=== PATIENT | female | born 1955 | race Caucasian/White ===

== ENCOUNTER → 2019-01-30 13:22 | Outpatient (CLI) | payer BC, SELFPAY | PROVIDERS: PCP Nurse Practitioner Family; Visit Provider Nurse Practitioner Family | DX: I48.91 Unspecified atrial fibrillation (principal) | CPT/HCPCS: 93225; 93226 ==

== ENCOUNTER → 2019-02-12 06:39 | Outpatient (CLI) | payer BC, SELFPAY ==
--- NOTE | 2019-02-12 06:45 | CA_ITS ---
PROCEDURE: 2-D M-mode and color Doppler study INDICATIONS FOR THE TEST: Chest pain+ COPD Heart Murmur Tobacco Smoking Palpitations+ Fatigue+ Syncope Edema Hypertension Diabetes Mellitus Rheumatic Fever SOB MALIK Obesity Hyperlipidemia+ Family History HD Additional History Abn EKG, AFIB, GERD, hx DVT, Butler, hx of MV prolapse PATIENT INFORMATION HEIGHT: 64 WEIGHT: 142 GENDER: Female B/P: 161/72 2-D/M-MODE INTERPRETATION: 2-D MEASUREMENTS OBSERVED VALUES IN CMS Right Ventricular Dimension (RVDd) 2.8 Interventricular Septum (Thickness)(IVsd) 0.8 Left Ventricular Internal Dimensions(LVIDd) 4.1 Left Ventricular Posterior Wall (Thickness)(LVPWd) 0.7 Aortic Root 2.5 Aortic Cusp Separation 2.0 Left Atrial Dimensions (LAD) 4.1 2D 1. Left atrium is mildly enlarged, left ventricle is normal size, left ventricle wall thickness is upper limit of the normal, there is preserved left ventricular systolic function, visually estimated ejection fraction 55% with no regional wall motion abnormality. 2. The right atrium and right ventricle are mildly enlarged with normal contractility. 3. The aortic valve is minimally thickened and fibrosed. 4. The mitral and tricuspid valve leaflets are minimally thickened. 5. The pulmonic valve is poorly visualized. 6. No significant pericardial effusion noted. DOPPLER INTERROGATION: Doppler interrogation of the aortic, mitral and tricuspid valvular presence of mild mitral and tricuspid regurgitation, tricuspid regurgitation jet velocity is inadequate for calculation of the right ventricular systolic pressure, grade 1 diastolic dysfunction seen with tissue Doppler evidence of raised left atrial pressure. Inferior vena cava is not well visualized. CONCLUSION: 1. Mild biatrial enlargement, normal left ventricular size, visually estimated ejection fraction 55% with no regional wall motion abnormality, grade 1 diastolic dysfunction seen with tissue Doppler evidence of raised left atrial pressure. 2. Mildly enlarged right ventricle with normal contractility. 3. Mild mitral and tricuspid regurgitation 4. No significant pericardial effusion noted.
--- NOTE | 2019-02-12 06:50 | NM_ITS ---
CARDIOLITE SPECT [facility] AND [facility]: History: Palpitations, fatigue hyperlipidemia, family history. Procedure: Patient exercised on Coleman protocol 5 minutes and 29 seconds, resting heart rate was 57 bpm resting blood pressure 182/89, with exercise maximum heart rate achieved was 154 bpm which is greater than 85% of the maximum] heart rate and a blood pressure was 214/70. The test was started due to shortness of breath patient denied any complained of chest pain. Patient has adequate exercise capacity achieved 7mets of workload on treadmill, the blood pressure response to exercise was hypertensive. Electrocardiogram: Resting echocardiogram showed sinus bradycardia, with exercise 1.[address] segment depression noted from the baseline EKG. The EKG portion of the exercise Myoview is positive for ischemia. Cardiac stress and resting SPECT images: Cardiac stress and resting SPECT images were obtained using technetium 99 Myoview 32.3 mCi at stress and 10.5 mCi at rest. Gated SPECT further analysis of segmental wall motion and calculation of the ejection fraction also done. Cardiac stress and resting SPECT images show a mild fixed defect in the anterior wall with normal contractility in the gated SPECT is likely secondary to soft tissue attenuation, no reversible ischemia seen. Computer derived ejection fraction is over 65% with no regional wall motion abnormality, right ventricle is normal size and contractility. Conclusion: 1. The EKG portion of the exercise Myoview is positive for ischemia, patient has adequate exercise capacity achieved 7mets of workload on treadmill, the blood pressure response to exercise was hypertensive, there was no exercise-induced chest discomfort. 2. No scintigraphic evidence of reversible ischemia seen at this level of exercise, computer derived ejection fraction is over 65% with no regional wall motion abnormality, right ventricle is normal size and contractility.
--- NOTE | 2019-02-12 09:45 | HMH.ITSHM ---
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 [] levethroxin citalopram astravastatin asa
== END ==
PROVIDERS: PCP Nurse Practitioner Family; Visit Provider Internal Medicine
DX: R00.2 Palpitations (principal); R53.83 Other fatigue; E78.5 Hyperlipidemia, unspecified; I48.0 Paroxysmal atrial fibrillation; I82.409 Acute embolism and thrombosis of unspecified deep veins of unspecified lower extremity; K21.9 Gastro-esophageal reflux disease without esophagitis; R07.89 Other chest pain; R53.1 Weakness; R94.31 Abnormal electrocardiogram [ECG] [EKG]; Z82.49 Family history of ischemic heart disease and other diseases of the circulatory system
CPT/HCPCS: 78452; 93017; 93306; A9502

== ENCOUNTER → 2019-02-16 09:06 | Outpatient (CLI) | payer BC, SELFPAY ==
--- NOTE | 2019-02-16 09:11 | US_ITS ---
US abdomen limited History:Nausea, right upper quadrant pain no hydronephrosis Ordering Physician:Beverly Gerardo APRN Patient Age: 63 years . Comparison:None Findings: Pancreas:Unremarkable. No obvious mass or abnormal fluid collection. No ductal dilatation Liver:There are 2 hepatic cysts in the right hepatic lobe measuring 2 x 1.7 cm and 1.7 x 1.9 cm. There is a small loculation within the smaller cyst.. The smaller cyst does have a small loculation. Right Kidney:3 cm cystic areas noted in the right renal pelvis region and may be related to a parapelvic renal cyst. The calyces are not dilated..prominent renal pelvis is an additional consideration Gallbladder:No gallstones, gallbladder wall thickening, pericholecystic fluid, or biliary dilatation. Small amount of gallbladder sludge versus concentrated bile is present of questionable clinical significance Impression: 1. Minimal gallbladder sludge versus concentrated bile. No gallstones. 2. Hepatic cysts. 3. Right parapelvic renal cyst versus prominent renal pelvis
== END ==
PROVIDERS: PCP Nurse Practitioner Family; Visit Provider Nurse Practitioner Family
DX: R10.11 Right upper quadrant pain (principal)
CPT/HCPCS: 76705

== ENCOUNTER → 2019-06-30 10:08 | Outpatient (CLI) | payer BC, SELFPAY ==
--- NOTE | 2019-06-30 10:13 | XR_ITS ---
PROCEDURE: XR LUMBAR SPINE MIN 4V CLINICAL INDICATION: LT SIDED LOW BACK PAIN COMPARISON: LS5 LUMBAR SPINE 5 VIEWS from 10/03/2016 FINDINGS: There is minimal lumbar curvature convex left. Mild facet arthritic changes present at L5-S1. There is normal alignment with mild degenerative disc disease at L3-L4 and L4-5. No fracture or dislocation. No lytic or blastic change. Normal alignment. IMPRESSION: Mild degenerative changes Dictated by: Breezy Martinez MD 06/30/2019 17:50 Electronically signed by Breezy Martinez MD in [place] 06/30/2019 17:50
== END ==
PROVIDERS: PCP Nurse Practitioner Family; Visit Provider Nurse Practitioner Family
DX: M54.42 Lumbago with sciatica, left side (principal)
CPT/HCPCS: 72110

== ENCOUNTER 2019-07-23 08:30 | Outpatient (RCR) | payer BC, SELFPAY ==
--- NOTE | 2019-06-15 11:14 | HMH.PTOPEV ---
PT Outpatient Evaluation Rehab PT Outpatient Evaluation Start: 06/15/19 10:39 Freq: Status: Active Protocol: Document 06/15/19 10:40 RIKA (Rec: 06/15/19 11:13 RIKA [id number]) Electronically Signed By Rogelio Washburn, PT 06/15/19 10:40 Outpatient Therapy Subjective History Subjective History Pt reports insidious onset L LE/thigh area N&T beginning in May. Pt reports intermittent N&T in L thigh area as well as L sided LBP. Pt reports no current weakness or pain in LLE. Pt reports improved s/s intensity w/recent cortizone injection. Chief Complaint Pain,Paresthesia Symptom Type Ache,Dull,Numbness,Tingling Symptoms Relieved By Rest/Positioning,Prescription Meds Symptoms Aggravated By Standing,Walking Prior Functional Limitations None Current Functional Limitations Standing,Walking Symptom Description Constant but Variable Level of pain today (0-10) 5 Pain scale - at its best (0-10) 3 Pain scale - at its worst (0-10) 5 Lumbopelvic Eval Posture Thoracic Spine Posture Standing Position Neutral Lumbar Spine Posture Standing Position Neutral Assistive device Assistive Devices None / NA Gait Observation General Gait Pattern Observation No Deviations/Normal Palapation tenderness left paraspinal tenderness Yes: 2/4 buttock tenderness Yes: 3/4 Lumbar/Sacral Palpation Findings Tenderness Accessory Movement L-spine Vertebrae Accessory Movements Central P/A Stigler that Elicit Symptoms L4 left L5 left Range of Motion Lumbar Spine Active Flexion Range of 0-70 Motion (degrees) Lumbar Spine Active Extension Range of 0-25 Motion (degrees) Left Lumbar Spine Lateral Flexion Active 0-40 Range of Motion (degrees) Right Lumbar Spine Lateral Flexion 0-40 Active Range of Motion (degrees) Lumbar Spine ROM Limitations Pain Manual Muscle Test Bilateral Knee Extension Strength Grade 5 Normal Knee Flexion Strength Grade 5 Normal Hip Flexion Strength Grade 4 Good Extensor Hallucis Longus Strength Grade 5 Normal Ankle Dorsiflexion Strength Grade 5 Normal Gastronemius/Soleus Strength Grade 4 Good DTR Rt Patellar 1+ Lt Patellar 1+ Rt Gastroc/Soleus 1+ Lt Gastroc/Soleus 1+ Special Tests Hip Piriformis Test Negative Right,Positive Left Reverse Sciatic Nerve Tension Test Negative Right,Positive Left
== END 2019-07-23 08:35 | disposition home or self-care (01) ==
LOC: PT 08:30
PROVIDERS: Visit Provider Nurse Practitioner Family
DX: M54.42 Lumbago with sciatica, left side (principal); M76.32 Iliotibial band syndrome, left leg
CPT/HCPCS: 97010; 97014; 97110; 97163; 97164; G0283

== ENCOUNTER → 2019-08-28 12:37 | Outpatient (CLI) | payer BC, SELFPAY ==
--- NOTE | 2019-08-28 12:38 | US_ITS ---
PROCEDURE: US KIDNEY CLINICAL INDICATION: BILAT RENAL CYSTS COMPARISON: No exams were available for comparison FINDINGS: Right kidney is 10.1 x 4.3 x 5.9 centimeters. Left kidney is 10.3 x 4.1 x 4.9 centimeters. Renal cortical areas are normal bilaterally. Right kidney shows a 4.3 centimeter anechoic lesion which could be in the renal sinus. There is no hydronephrosis. There is another anechoic structure in the hilum which could be a pedunculated cyst measuring 2.7 centimeters or developmental prominent extra renal pelvis. Left kidney shows normal cortex. There is no cortical lesion. Bilaterally there are no shadowing echogenic foci or hydronephrosis. IMPRESSION: Right renal cysts. No acute process and no hydronephrosis. Dictated by: Payam Lewis 08/28/2019 15:12 Electronically signed by Payam Lewis in [place] 08/28/2019 15:12
== END ==
PROVIDERS: PCP Nurse Practitioner Family; Visit Provider Nurse Practitioner Family
DX: N28.1 Cyst of kidney, acquired (principal)
CPT/HCPCS: 76770

== ENCOUNTER → 2020-06-16 12:15 | Outpatient (CLI) | payer BC, SELFPAY ==
--- NOTE | 2020-06-16 12:26 | XR_ITS ---
PROCEDURE: XR LUMBAR SPINE MIN 4V CLINICAL INDICATION: LOW BACK PAIN Left-sided sciatica COMPARISON: CR XR LUMBAR SPINE MIN 4V from 06/30/2019 FINDINGS: There is minimal lumbar curvature convex left. No acute fracture or dislocation is evident. There is mild degenerative disc disease at L3-L4 and L4-5 with small anterior osteophytes superiorly. There are areas of calcification to the right of L4 and L5 possibly due to calcified phleboliths in the gonadal vein. Not significantly changed from 06/30/2019. Pelvic phleboliths are also present. Other findings:None. IMPRESSION: Mild degenerative changes. No change with no acute finding Dictated by: Breezy Martinez MD 06/16/2020 12:54 Breezy Martinez MD in [place] 06/16/2020 12:54
== END ==
PROVIDERS: PCP Nurse Practitioner Family; Visit Provider Nurse Practitioner Family
DX: M54.42 Lumbago with sciatica, left side (principal)
CPT/HCPCS: 72110

== ENCOUNTER → 2020-08-01 11:15 | Outpatient (CLI) | payer BC, SELFPAY ==
[2020-08-02 14:33] LABS: Covid-19 Nasal PCR Sendout Lex POSITIVE
== END ==
PROVIDERS: PCP Nurse Practitioner Family; Visit Provider Nurse Practitioner Family
DX: Z20.828 Contact with and (suspected) exposure to other viral communicable diseases (principal); U07.1 COVID-19
CPT/HCPCS: U0004

== ENCOUNTER → 2020-11-04 11:37 | Outpatient (CLI) | payer BC, SELFPAY ==
[2020-11-04 12:12] LABS: Basophils % 0.3 % (0.1-2.0); Eosinophils # 0.1 K/mm3 (0.0-0.4); Eosinophils % 0.8 % (0.1-12.0); Hematocrit 37.6 % (37.0-47.0); Hemoglobin 11.8 g/dL (12.2-16.2); Lymphocytes # 1.1 K/mm3 (0.7-4.5); Lymphocytes % 11.7 % (10-50); Mean Corpuscular HGB Conc 31.4 g/dL (31.8-35.4); Mean Corpuscular Hemoglobin 27.8 pg (27.0-31.2); Mean Corpuscular Volume 88.5 fl (81-99); Mean Platelet Volume 7.3 fl (7.4-10.4); Monocytes # 0.2 K/mm3 (0.1-1.0); Monocytes % 2.5 % (1.7-9.3); Neutrophils # 7.6 K/mm3 (1.8-7.8); Neutrophils % 84.6 % (37.0-80.0); Platelet Count 291 K/mm3 (142-424); Red Blood Count 4.24 M/mm3 (4.20-5.40); Red Cell Distribution Width 14.1 % (11.5-17.5)
[2020-11-04 12:37] LABS: Free T4 (Free Thyroxine) 1.21 ng/dl (0.78-2.19)
[2020-11-04 12:52] LABS: Thyroid Stimulating Hormone 0.77 uIU/mL (0.465-4.68)
== END ==
PROVIDERS: Visit Provider Nurse Practitioner Family
DX: E04.1 Nontoxic single thyroid nodule (principal); R59.0 Localized enlarged lymph nodes
CPT/HCPCS: 36415; 84439; 84443; 84481; 85025

== ENCOUNTER → 2020-11-11 13:38 | Outpatient (CLI) | payer BC, SELFPAY ==
--- NOTE | 2020-11-11 13:46 | US_ITS ---
PROCEDURE: US THYROID CLINICAL INDICATION: THYROID NODULE COMPARISON: No exams were available for comparison FINDINGS: The right lobe is 3.3 x 1.1 x 1.1 cm. There is heterogeneous echogenicity with no definite nodule. The left lobe is 3.8 x 1.2 x 0.8 cm. Hyperechoic areas present in the mid aspect of the left lobe. This is not well-defined and may only represent an area of altered echogenicity. A nodule is a consideration. This measures 11 x 4 mm. An additional questionable nodule noted in the lower pole at 6 mm slightly hypoechoic. IMPRESSION: Questionable nodules on the left. These are nonspecific and may only be due to areas of heterogeneous echogenicity. Consider 6-12 month follow-up. Dictated by: Breezy Martinez MD 11/11/2020 17:08 Breezy Martinez MD in [place] 11/11/2020 17:08
--- NOTE | 2020-11-11 13:47 | US_ITS ---
PROCEDURE: US SOFT TISSUE HEAD AND NECK CLINICAL INDICATION: CERVICAL LYMPHADENOPATHY COMPARISON: No exams were available for comparison FINDINGS: The submandibular glands and parotid glands have unremarkable sonographic appearance. No abnormal fluid collection demonstrated. Small lymph node present in the right neck at 8 mm nonspecific. IMPRESSION: Unremarkable neck ultrasound. CT with contrast may provide more thorough evaluation if clinically warranted Dictated by: Breezy Martinez MD 11/11/2020 17:05 Breezy Martinez MD in [place] 11/11/2020 17:05
== END ==
PROVIDERS: PCP Nurse Practitioner Family; Visit Provider Nurse Practitioner Family
DX: E04.1 Nontoxic single thyroid nodule (principal); R59.0 Localized enlarged lymph nodes
CPT/HCPCS: 76536

== ENCOUNTER → 2021-03-10 11:47 | Outpatient (CLI) | payer BC, SELFPAY ==
--- NOTE | 2021-03-10 11:57 | XR_ITS ---
PROCEDURE: XR FACIAL BONES MIN 3V CLINICAL INDICATION: FACIAL INJURY, INJURY DUE TO FALL COMPARISON: No exams were available for comparison FINDINGS: No fracture or sinus air-fluid level apparent. No radiopaque foreign body. No lytic or blastic change. No obvious soft tissue sinus mass. Other findings:None. IMPRESSION: No acute findings. Dictated by: Breezy Martinez MD 03/10/2021 12:46 Breezy Martinez MD in [place] 03/10/2021 12:46
--- NOTE | 2021-03-10 11:57 | XR_ITS ---
PROCEDURE: XR HUMERUS RT CLINICAL INDICATION: INJURY DUE TO FALL, INJURY OF RT UPPER ARM Injury with pain COMPARISON: No exams were available for comparison FINDINGS: No fracture or dislocation. No lytic or blastic change. There is normal mineralization. The joint spaces are well-preserved. No significant degenerative/arthritic changes. No erosive changes evident. Other findings:None. IMPRESSION: No acute findings. Dictated by: Breezy Martinez MD 03/10/2021 12:46 Breezy Martinez MD in [place] 03/10/2021 12:46
== END ==
PROVIDERS: PCP Nurse Practitioner Family; Visit Provider Nurse Practitioner Family
DX: S49.91XA Unspecified injury of right shoulder and upper arm, initial encounter (principal); M79.601 Pain in right arm; S09.93XA Unspecified injury of face, initial encounter; W19.XXXA Unspecified fall, initial encounter
CPT/HCPCS: 70150; 73060

== ENCOUNTER → 2021-05-09 16:36 | Outpatient (CLI) | payer BC, SELFPAY ==
[2021-05-09 16:39] LABS: Adenovirus F 40/41, stool Not Detected (NotDetected); Astrovirus Not Detected (NotDetected); Campylobacter Not Detected (NotDetected); Clostridium Difficile A/B, PCR Not Detected (NotDetected); Cryptosporidium Not Detected (NotDetected); Cyclospora Cayetanesis Not Detected (NotDetected); Entamoeba histolytica Not Detected (NotDetected); Enteroaggregative E coli Not Detected (NotDetected); Enterotoxigenic E coli Not Detected (NotDetected); Giardia lamblia Not Detected (NotDetected); Norovirus Not Detected (NotDetected); Plesimonas Shigalloides, PCR Not Detected (NotDetected); Rotavirus A Not Detected (NotDetected); Salmonella, PCR Not Detected (NotDetected); Sapovirus Not Detected (NotDetected); Shiga-like toxin E coli Not Detected (NotDetected); Shigella Enterovasive E coli Not Detected (NotDetected); Vibrio Cholerae Not Detected (NotDetected); Vibrio, PCR Not Detected (NotDetected); Yersinia Entercolitica, PCR Not Detected (NotDetected)
[2021-05-10 04:26] LABS: Enteropathogenic E coli Detected (NotDetected)
== END ==
PROVIDERS: Visit Provider Nurse Practitioner Family
DX: R10.9 Unspecified abdominal pain (principal); R19.7 Diarrhea, unspecified; A04.0 Enteropathogenic Escherichia coli infection
CPT/HCPCS: 87507

== ENCOUNTER 2021-08-16 17:06 | Emergency (ER) | payer BC, SELFPAY ==
[2021-08-16 17:10] VITALS: BP 188/97; PULSE 59; RESP 18; O2SAT 98; BMI 24.2
[2021-08-16 18:00] VITALS: BP 181/65; PULSE 55; RESP 16; TEMP 37.1; O2SAT 100; BMI 24.7
[2021-08-16 18:31] VITALS: BP 155/59; PULSE 57; RESP 16; O2SAT 100
[2021-08-16 19:36] VITALS: BP 142/63; PULSE 55; RESP 16; TEMP 37.1
--- NOTE | 2021-08-16 19:36 | HMH.EDWNDL ---
ED Disposition Clinical Impression: Laceration of finger, Laceration Disposition: Home, Self-Care Condition on Discharge: Good Instructions: DI for Laceration Repair Additional Instructions: Please follow-up with your primary care physician in 7 days for wound check and suture removal. Please take Tylenol and ibuprofen for pain control. Please return back to the emergency department for any concerning symptoms such as bleeding, surrounding redness, purulent white drainage or any other concerning signs for infection. Please keep wound clean and dry. Referrals: Beverly Gerardo APRN [Primary Care Provider] - Time of Disposition: 19:40 - Critical Care Critical Care Time: No Attestation: On 08/16/21, the high probability of a clinically significant, sudden or life threatening deterioration of the following system(s) required my full and direct attention, intervention and personal management. The time I documented below is in addition to time spent performing reported procedures but includes the following listed in this critical care notation. Medical Decision Making - Medical Records Medical records reviewed: Yes: I reviewed the patient's medical records. - [place] Inquiry Pt receiving controlled substance: No Vital Signs: 08/16/21 17:10 08/16/21 18:00 08/16/21 18:31 Temperature 98.8 F Temperature Source Oral Pulse Rate 57 L Pulse Rate [Right Brachial] 59 L 55 L Respiratory Rate 18 16 16 Blood Pressure 155/59 H Blood Pressure [Right Arm] 188/97 H 181/65 H Blood Pressure Mean 91 Blood Pressure Mean [Right Arm] 127 103 Blood Pressure Source [Right Arm] Automatic Cuff Automatic Cuff Blood Pressure Position [Right Arm] Sitting Sitting 02 Sat by Pulse Oximetry 98 100 100 Oxygen Delivery Method Room Air Room Air 08/16/21 19:36 Temperature 98.7 F Temperature Source Pulse Rate 55 L Pulse Rate [Right Brachial] Respiratory Rate 16 Blood Pressure 142/63 H Blood Pressure [Right Arm] Blood Pressure Mean Blood Pressure Mean [Right Arm] Blood Pressure Source [Right Arm] Blood Pressure Position [Right Arm] 02 Sat by Pulse Oximetry Oxygen Delivery Method Room Air - Lab Data Lab results reviewed: Yes: I reviewed the patient's lab results. Medical Decision Narrative: Mrs. Chi is a 65-year-old female with no significant past medical history, no blood thinners who presents to the emergency department for an isolated laceration to the left index finger. Hemostasis is achieved on arrival. Patient is neurovascularly intact and hemodynamically stable. Patient has a 1 inch superficial laceration to the distal end of her index finger with no concern for tendon involvement or foreign body. Patient is up-to-date on tetanus. Wound is repaired with 4 nylon sutures and patient is informed to follow-up with primary care physician in 7 days for suture removal. Patient is provided instructions on wound care. Patient instructed to return to the ED for any concerning signs of infection such as erythema, purulent white drainage, worsening pain or any other concerning symptoms. Wound/Laceration HPI - General Chief Complaint: Wound/Laceration Stated Complaint: AO 08/16@1000 LAC TO L INDEX FINGER Time Seen by Provider: 08/16/21 17:20 Mode of Arrival: Ambulatory Source of Information: Patient Limitations: No Limitations Description of Symptoms (Recalled from ER Triage Doc. by RN): laceration to R index finger, happened at approx 10 am this morning. Pt reports she cut finger with an exacto knife. laceration does involve the finger nail - History of Present Illness Onset (ago): hour(s) Location: other (hand) Extremity Location: Left: hand (1 inch laceration at the distal tip of index finger ) Place: home Patient tetanus UTD: Yes Context: accidental Associated symptoms: pain Treatments prior to arrival: bandage - Related Data Home Medications Medication Instructions Recorded Confirmed aspirin 81
== END 2021-08-16 19:39 | disposition home or self-care (01) ==
PROVIDERS: Emergency Provider Student in an Organized Health Care Education/Training Program; PCP Nurse Practitioner Family
DX: S61.311A Laceration without foreign body of left index finger with damage to nail, initial encounter (principal); W26.0XXA Contact with knife, initial encounter; Y92.010 Kitchen of single-family (private) house as the place of occurrence of the external cause; I10 Essential (primary) hypertension; K21.9 Gastro-esophageal reflux disease without esophagitis; R01.1 Cardiac murmur, unspecified; E78.5 Hyperlipidemia, unspecified; E03.9 Hypothyroidism, unspecified
CPT/HCPCS: 12001; 99282

== ENCOUNTER 2021-08-31 10:14 | Emergency (ER) | payer BC, SELFPAY ==
[2021-08-31 11:41] VITALS: BP 148/61; PULSE 63; RESP 18; TEMP 36.9; O2SAT 98; BMI 24.7
--- NOTE | 2021-08-31 11:56 | HMH.EDUTC ---
[place] Disposition Clinical Impression: UTI (urinary tract infection) Qualifiers: Urinary tract infection type: site unspecified Hematuria presence: with hematuria Qualified Code(s): N39.0 - Urinary tract infection, site not specified; R31.9 - Hematuria, unspecified Disposition: Home, Self-Care Condition on Discharge: Good Instructions: DI for Urinary Tract Infection (UTI), Cefdinir, Phenazopyridine Additional Instructions: *Increase fluids. Water not Soda or Tea *Start antibiotic immediately and be sure to take as ordered for the FULL length of time although you should start to see improvement over the next 48 hours *Pyridium as needed Remember this medication will turn your urine [place]. This is normal but it will stain what ever it gets on *You should not use Pyridium for more than 48 hours. If so , follow up with your primary physician to review urine culture and ensure that antibiotic is adequate for infection *Be SURE to follow up anytime for new or worsening symptoms with your family doctor. AND in 48 hours for urine culture results with your family doctor, if you do not have a doctor then you may call back to the [facility] for urine culture results and further treatment. We do recommend that you choose and establish care with a Primary Care Physician. AND follow up with them in 10-14 days to repeat UA to ensure infection is resolved and blood no longer present *Be sure to let your PCP know that we sent urine cultures from the [facility] so they can follow up to ensure that you area the on the correct antibiotic Call your doctor office and make appointment for 48 hours (2 days from today) to follow up and get the results of your urine culture and further treatment Prescriptions: Cefdinir [Omnicef 300mg Capsule] 300 mg PO BID #20 cap Transmission Status: Pending to [id number] Phenazopyridine HCl [Pyridium 200mg Tablet] 200 pow PO TID #6 tab Transmission Status: Pending to [id number] Referrals: Beverly Gerardo APRN [Primary Care Provider] - As needed Time of Disposition: 12:06 Medical Decision Making - [place] Inquiry Pt receiving controlled substance: No [place] was queried for this patient: No Vital Signs: 08/31/21 11:41 Temperature 98.4 F Temperature Source Oral Pulse Rate [Left] 63 Respiratory Rate 18 Blood Pressure [Right Arm] 148/61 H Blood Pressure Mean [Right Arm] 90 02 Sat by Pulse Oximetry 98 - Lab Data Lab results reviewed: Yes: I reviewed the patient's lab results. Orders (Tests/Meds): ORDERS Category Date Time Status Urine Culture Stat Micro 08/31/21 11:43 Ordered [place] HPI - General Stated complaint: possible UTI Time Seen by Provider: 08/31/21 11:57 Mode of Arrival: Ambulatory Source of Information: Patient Limitations: No Limitations Description of Symptoms (Recalled from Triage Doc. by RN): pt c/o burning with urination since last night. HEENT Symptoms (Recalled from RN notes): No Resp Symptoms (Recalled from RN notes): No Skin Symptoms (Recalled from RN notes): No MS Symptoms (Recalled from RN notes): No Functional Status (Recalled from RN notes): wnl - History of Present Illness Provider Complaint: Patient states that she has having burning with urination and feeling of urgency and frequency since last night States that she feels like she may have a UTI and wanted to get her urine checked - Related Data Home Medications Medication Instructions Recorded Confirmed aspirin 81 mg tablet,delayed 81 mg PO DAILY 02/02/19 06/05/21 release atorvastatin 40 mg tablet 40 mg PO DAILY 02/02/19 06/05/21 citalopram 20 mg tablet 20 mg PO DAILY 02/02/19 06/05/21 fluticasone propionate 50 1 spray INTRANASAL DAILY 02/02/19 06/05/21 mcg/actuation nasal spray,suspension levothyroxine 75 mcg capsule 75 mcg PO DAILY 02/02/19 06/05/21 omeprazole 20 mg capsule,delayed 20 mg PO DAILY 02/02/19 06/05/21 release metoprolol tartrate 25 mg tablet 25 mg PO DAILY tab
[2021-08-31 11:58] LABS: Apearance,Urine Turbid (Clear); Color,Urine Dark Yellow (Yellow); PH,Urine 6.5 (5.0-8.5); Protein,Urine 1+ (Negative)
[2021-08-31 11:59] LABS: Bilirubin,Urine Negative (Negative); Blood, Urine 1+ (Negative); Glucose,Urine (UA) Negative (Negative); Ketones,Urine Negative (Negative); UTC Leukocyte Esterase,Urine 3+ (Negative); UTC Nitrate,Urine Positive (Negative); Urobilinogen,Urine 0.2 EU/dl (0.2)
[2021-08-31 12:26] VITALS: BP 148/61; PULSE 63; RESP 18; TEMP 36.9
== END 2021-08-31 12:27 | disposition home or self-care (01) ==
PROVIDERS: Emergency Provider Nurse Practitioner; PCP Nurse Practitioner Family
DX: N30.01 Acute cystitis with hematuria (principal); I10 Essential (primary) hypertension; E78.5 Hyperlipidemia, unspecified; E03.9 Hypothyroidism, unspecified; K21.9 Gastro-esophageal reflux disease without esophagitis; F33.1 Major depressive disorder, recurrent, moderate; Z79.899 Other long term (current) drug therapy
CPT/HCPCS: 81003; 87086; 87088; 87186; 99202; G0463

== ENCOUNTER 2022-01-08 20:58 | Emergency (ER) | payer MEDICARE, SELFPAY ==
[2022-01-08 20:59] VITALS: BP 160/65; PULSE 67; RESP 18; TEMP 36.7; O2SAT 97; BMI 23.9
--- NOTE | 2022-01-08 21:24 | XR_ITS ---
PROCEDURE INFORMATION: Exam: XR Right Foot Exam date and time: 01/08/2022 9:38 PM Age: 66 years old Clinical indication: Pain; Ankle and foot; Right; Additional info: Right lateral foot/ankle pain, no injury TECHNIQUE: Imaging protocol: XR Right foot. Views: 3 or more views. COMPARISON: No relevant prior studies available. FINDINGS: Bones/joints: Normal. Soft tissues: Normal. IMPRESSION: No acute findings.
--- NOTE | 2022-01-08 21:24 | XR_ITS ---
PROCEDURE INFORMATION: Exam: XR Right Ankle Exam date and time: 01/08/2022 9:39 PM Age: 66 years old Clinical indication: Pain; Ankle and foot; Right; Additional info: Right lateral foot/ankle pain, no injury TECHNIQUE: Imaging protocol: XR Right ankle. Views: 3 or more views. COMPARISON: CR XR FOOT RT MIN 3V 01/08/2022 9:38 PM FINDINGS: Bones/joints: Normal. Soft tissues: Normal. IMPRESSION: No acute findings.
[2022-01-08 21:45] LABS: Basophils # 0.2 K/mm3 (0-0.2); Basophils % 1.5 % (0.1-2.0); Eosinophils # 0.2 K/mm3 (0.0-0.4); Eosinophils % 1.6 % (0.1-12.0); Hematocrit 34.1 % (37.0-47.0); Hemoglobin 11.4 g/dL (12.2-16.2); Lymphocytes # 2.3 K/mm3 (0.7-4.5); Lymphocytes % 21.7 % (10-50); Mean Corpuscular HGB Conc 33.4 g/dL (31.8-35.4); Mean Corpuscular Hemoglobin 28.2 pg (27.0-31.2); Mean Corpuscular Volume 84.6 fl (81-99); Mean Platelet Volume 7.5 fl (7.4-10.4); Monocytes # 0.6 K/mm3 (0.1-1.0); Monocytes % 5.1 % (1.7-9.3); Neutrophils # 7.6 K/mm3 (1.8-7.8); Neutrophils % 70.1 % (37.0-80.0); Platelet Count 324 K/mm3 (142-424); Red Blood Count 4.03 M/mm3 (4.20-5.40); Red Cell Distribution Width 14.6 % (11.5-17.5); White Blood Count 10.8 K/mm3 (4.8-10.8)
[2022-01-08 21:58] LABS: Alanine Aminotransferase 35 U/L (12-78); Albumin Level 4.5 g/dl (3.5-5.0); Albumin/Globulin Ratio 1.5 (1.1-1.8); Alkaline Phosphatase 62 U/L (38-126); Anion Gap 13.6 mEq/L (5-15); Aspartate Amino Transferase 43 U/L (14-36); Bilirubin,Total 0.7 mg/dl (0.2-1.3); Blood Urea Nitrogen 17 mg/dl (7-17); Calcium 9.3 mg/dl (8.4-10.2); Carbon Dioxide 28 mmol/L (22.0-30.0); Chloride 103 mmol/L (98-107); Creatinine Clearance Estimated 54 mL/min (50-200); Estimated Glomerular Filt Rate 72 ml/min (>60); GFR (African American) 87 ML/MIN (>60); Globulin 3.1 g/dL (1.3-3.2); Glucose 100 mg/dl (74-100); Potassium 4.6 mmoL/L (3.5-5.1); Sodium 140 mmol/L (136-145); Total Protein,Serum 7.6 g/dl (6.3-8.2)
[2022-01-08 22:03] LABS: C-Reactive Protein 1.3 mg/L (0-4)
[2022-01-08 22:19] LABS: Erythrocyte Sedimentation Rate 50 mm/hr (0-30)
[2022-01-08 22:22] LABS: Procalcitonin < 0.030 ng/mL (0.0-2.0)
--- NOTE | 2022-01-08 22:37 | HMH.EDGENADL ---
ED Disposition Clinical Impression: Ankle pain Qualifiers: Chronicity: acute Laterality: right Qualified Code(s): M25.571 - Pain in right ankle and joints of right foot Disposition: Home, Self-Care Condition on Discharge: Good Instructions: DI for Acute Pain -- Adult Additional Instructions: use meds and call pcp for follow up Prescriptions: predniSONE [Prednisone 20mg Tab] 20 mg PO BID #10 tab Transmission Status: Pending to [facility] Referrals: Beverly Gerardo APRN [Primary Care Provider] - - Critical Care Critical Care Time: No Attestation: On 01/08/22, the high probability of a clinically significant, sudden or life threatening deterioration of the following system(s) required my full and direct attention, intervention and personal management. The time I documented below is in addition to time spent performing reported procedures but includes the following listed in this critical care notation. Medical Decision Making - Medical Records Medical records reviewed: Yes: I reviewed the patient's medical records. - Kirby Inquiry Pt receiving controlled substance: No Vital Signs: 01/08/22 20:59 Temperature 98.1 F Temperature Source Oral Pulse Rate [Left Radial] 67 Respiratory Rate 18 Blood Pressure [Right Arm] 160/65 H Blood Pressure Mean [Right Arm] 96 Blood Pressure Source [Right Arm] Automatic Cuff Blood Pressure Position [Right Arm] Sitting 02 Sat by Pulse Oximetry 97 Oxygen Delivery Method Room Air - Lab Data Lab results reviewed: Yes: I reviewed the patient's lab results. Lab Results 01/08/22 21:30: WBC 10.8, RBC 4.03 L, Hgb 11.4 L, Hct 34.1 L, MCV 84.6, MCH 28.2, MCHC 33.4, RDW 14.6, Plt Count 324, MPV 7.5, Neut % (Auto) 70.1, Lymph % (Auto) 21.7, Monona % (Auto) 5.1, Eos % (Auto) 1.6, Baso % (Auto) 1.5, Neut # (Auto) 7.6, Lymph # (Auto) 2.3, Monona # (Auto) 0.6, Eos # (Auto) 0.2, Baso # (Auto) 0.2, ESR 50 H 01/08/22 21:30: Sodium 140, Potassium 4.6, Chloride 103, Carbon Dioxide 28, Anion Gap 13.6, BUN 17, Creatinine 0.80, Estimated Creat Clear 54, Estimated GFR 72, Est GFR ( Amer) 87, Glucose 100, Uric Acid 4.0, Calcium 9.3, Total Bilirubin 0.7, AST 43 H, ALT 35, Alkaline Phosphatase 62, C-Reactive Protein 1.3, Total Protein 7.6, Albumin 4.5, Globulin 3.1, Albumin/Globulin Ratio 1.5, Procalcitonin < 0.030 Result diagrams: 01/08/22 21:30 01/08/22 21:30 Orders (Tests/Meds): ED MEDICATIONS Discontinued Medications Generic Name Dose Route Start Last Admin Trade Name Freq PRN Reason Stop Dose Admin Acetaminophen/Codeine Phosphate 1 kathy 01/08/22 22:46 Acetaminophen 300mg W/Codeine 30mg Take Home Pack (6) PO 01/08/22 22:47 ONCE ONE Ketorolac Tromethamine 30 mg 01/08/22 21:25 01/08/22 21:26 Ketorolac 30mg/Ml Vial IM 01/08/22 21:26 30 mg ONCE ONE Administration Methylprednisolone Sodium Succinate 125 mg 01/08/22 22:45 Methylprednisolone Sod Succ 125mg Vial IV 01/08/22 22:46 ONCE ONE Morphine Sulfate 2 mg 01/08/22 22:46 Morphine 2mg/Ml Syringe IV 01/08/22 22:47 ONCE ONE - Radiology Data #1 Image(s): Ankle, Foot/Toes Image Reviewed: Yes I discussed the image results w/the radiologist Preliminary Findings: No Fracture Seen Medical Decision Narrative: rt ankle pain with stable labs and xray and exam most consistent with acute arthritis General Adult HPI - General Chief complaint: PAIN Stated complaint: Pain R ankle Time Seen by Provider: 01/08/22 21:05 Mode of Arrival: Wheelchair Source of Information: Patient, Relative, Medical Record Limitations: No Limitations Description of Symptoms (Recalled from ER Triage Doc. by RN): PT REPORTS THAT SHE IS HAVING HORRIBLE 10/10 PAIN TO RIGHT ANKLE - DENIES INJURY. - History of Present Illness HPI narrative: atraumatic rt ankle pain with no rash - no gout known Onset (ago): hour(s) Location: lower extremity Severity: moderate Quality: sharp Consistency:
[2022-01-08 22:58] VITALS: BP 143/71; PULSE 71; RESP 18; TEMP 36.7; O2SAT 98
== END 2022-01-08 23:08 | disposition home or self-care (01) ==
PROVIDERS: Emergency Provider Emergency Medicine; PCP Nurse Practitioner Family
DX: M25.571 Pain in right ankle and joints of right foot (principal); K21.9 Gastro-esophageal reflux disease without esophagitis; I10 Essential (primary) hypertension; E03.9 Hypothyroidism, unspecified; R00.2 Palpitations; R01.1 Cardiac murmur, unspecified; Z79.899 Other long term (current) drug therapy
CPT/HCPCS: 73610; 73630; 80053; 84145; 84550; 85025; 85651; 86140; 96372; 96374; 96375; 99284

== ENCOUNTER 2022-04-15 08:15 | Emergency (ER) | payer MEDICARE, SELFPAY ==
[2022-04-15 08:42] VITALS: BP 130/91; PULSE 79; RESP 16; TEMP 37.3; O2SAT 97; BMI 24.7
[2022-04-15 08:46] LABS: UTC Influenza A Antigen Negative (Negative); UTC Influenza B Antigen Negative (Negative)
[2022-04-15 08:47] LABS: UTC Strep Screen (Rapid) Negative (Negative)
--- NOTE | 2022-04-15 08:50 | HMH.EDUTC ---
[facility] – [place] Disposition Clinical Impression: URI (upper respiratory infection) Qualifiers: URI type: unspecified URI Qualified Code(s): J06.9 - Acute upper respiratory infection, unspecified Disposition: Home, Self-Care Condition on Discharge: Good Instructions: Sore Throat, DI for Sinusitis, DI for COVID-19 (Suspected or Confirmed ) Additional Instructions: ? Start antibiotic today. Be sure to complete entire prescription even if feeling better ? Monitor temp. Tylenol every 4 hours as needed and / or ibuprofen every 6 hours as needed ( As long as your primary care physician has told you that it ok to take both. For fever/aches/pains ER if no less than 101 despite Tylenol or Motrin ? Humidifier/vaporizer or hot steamy shower *Tessalon Perles will not cause drowsiness but use at bedtime to help stop cough so that you may get some rest. *Start steroid today. Helps with inflammation therefore, cough and wheezing. Follow directions on the package. Reviewed side effects. Patient reports taking them before. Follow up IMMEDIATELY for new or worsening of symptoms OR no noticeable improvement over the next 48-72 hours. 911 immediately for any life threatening symptoms such as chest pain or difficulty breathing You were tested for today for COVID19 your test result should be back in the next 24-48 hours, you may check your results on the [facility] My Health Portal Make sure to take your Vitamins Vit. C Vit D and Zinc if you can take them Prescriptions: Cefdinir [Omnicef 300mg Capsule] 300 mg PO BID 7 Days #14 cap Transmission Status: Pending to [facility] predniSONE [Prednisone 20mg Tab] 20 mg PO BID 5 Days #10 tab Transmission Status: Pending to [facility] Referrals: Beverly Gerardo APRN [Primary Care Provider] - As needed Time of Disposition: 09:11 Medical Decision Making - Kirby Inquiry Pt receiving controlled substance: No Kirby was queried for this patient: No Vital Signs: 04/15/22 08:42 Temperature 99.2 F Temperature Source Oral Pulse Rate [Left] 79 Respiratory Rate 16 Blood Pressure [Right Arm] 130/91 H Blood Pressure Mean [Right Arm] 104 02 Sat by Pulse Oximetry 97 - Lab Data Lab results reviewed: Yes: I reviewed the patient's lab results. Lab Results 04/15/22 08:36: Strep Scn Rapid [facility] Negative 04/15/22 08:37: Influenza Type A Ag Negative, Influenza Type B Ag Negative Orders (Tests/Meds): ORDERS Category Date Time Status Covid-19 Nasal PCR ([facility]) Routine Lab 04/15/22 08:36 Ordered Strep Screen Confirmation Stat Micro 04/15/22 08:36 Received Medical Decision Narrative: Patient states that she has taken both Cefdinir and Prednisone in the past without complications or reactions [facility] [place] HPI - General Stated complaint: low grade fever,SOA Time Seen by Provider: 04/15/22 08:50 Mode of Arrival: Ambulatory Source of Information: Patient Limitations: No Limitations Description of Symptoms (Recalled from Triage Doc. by RN): patient comes in with complaints of fever, trouble taking deep breaths, and sore throat. states that he had the flu a few weeks ago. and patient was also exposed to covid by her inlaws approx. 2 weeks ago as well. patient states that her symptoms began last night HEENT Symptoms (Recalled from RN notes): Yes Resp Symptoms (Recalled from RN notes): Yes Skin Symptoms (Recalled from RN notes): No MS Symptoms (Recalled from RN notes): No Functional Status (Recalled from RN notes): n/a - History of Present Illness Provider Complaint: Patient states that she started feeling bad last night State that she has been having low grade fever, scratchy throat, sinus congestion and feeling like she cant breath through her nose and it made her feel a little SOA states that she has had dry cough and feeling achy all over with chills States that this morning when she was still not feeling well she came in States that her had flu a couple weeks ago and she was around
[2022-04-15 09:15] VITALS: BP 130/91; PULSE 79; RESP 16; TEMP 37.3
== END 2022-04-15 09:20 | disposition home or self-care (01) ==
PROVIDERS: Emergency Provider Nurse Practitioner; PCP Nurse Practitioner Family
DX: J06.9 Acute upper respiratory infection, unspecified (principal); U07.1 COVID-19
CPT/HCPCS: 87804; 87880; 99212; C9803; G0463; U0003; U0005

== ENCOUNTER 2022-07-01 10:55 | Emergency (ER) | payer MEDICARE, SELFPAY ==
[2022-07-01 10:55] VITALS: BP 173/74; PULSE 56; RESP 16; TEMP 36.8; O2SAT 97; BMI 25.4
--- NOTE | 2022-07-01 11:23 | CT_ITS ---
PROCEDURE INFORMATION: Exam: CT Abdomen And Pelvis With Contrast Exam date and time: 07/01/2022 11:55 AM Age: 66 years old Clinical indication: Abdominal pain; Generalized; Additional info: Abdo pain, diarrhea TECHNIQUE: Imaging protocol: Computed tomography of the abdomen and pelvis with contrast. Radiation optimization: All CT scans at this facility use at least one of these dose optimization techniques: automated exposure control; mA and/or kV adjustment per patient size (includes targeted exams where dose is matched to clinical indication); or iterative reconstruction. Contrast material: ISOVUE; Contrast volume: 75 ml; Contrast route: IV; COMPARISON: [facility] US abdomen limited 02/16/2019 9:01 AM FINDINGS: Inferior thorax: Mild interstitial prominence. Punctate radiopaque density in the distal esophagus. Liver: Fatty infiltration of the liver. Hepatic cysts, the largest measuring 2.2 cm. Gallbladder and bile ducts: Unremarkable gallbladder. Pancreas: 7 mm pancreatic tail cyst. Spleen: No splenomegaly. Adrenal glands: Unremarkable adrenals. Kidneys and ureters: Moderate right pelvicaliceal dilatation, without associated urolithiasis. Stomach and bowel: Wall thickening in the decompressed stomach. Prominent stool. Diverticula, without pericolonic inflammation. Appendix: Nonvisualization of the appendix. Intraperitoneal space: No significant free fluid. Vasculature: Normal caliber of the abdominal aorta. Vascular calcification. Lymph nodes: Subcentimeter lymph nodes. Urinary bladder: Normal bladder morphology. Reproductive: Status post hysterectomy. Bones/joints: Mild degenerative change and disc bulging. Soft tissues: Poorly defined 1.4 cm nodular lesion in the subcutaneous fat of the left gluteal region, believed to be iatrogenic in etiology. IMPRESSION: 1. Moderate right pelvicaliceal dilatation, without associated urolithiasis. 2. Wall thickening in the decompressed stomach. 3. Additional findings as described above.
--- NOTE | 2022-07-01 11:25 | HMH.EDGENADL ---
Discharge Plan Disposition Patient Disposition: Home, Self-Care Condition: Good Prescriptions Prescriptions: No Action amoxicillin 500 mg capsule 500 mg PO Q12H 10 Days Qty: 20 0RF levothyroxine 75 mcg capsule 75 mcg PO DAILY citalopram [Celexa] 20 mg tablet 20 mg PO DAILY atorvastatin 40 mg tablet 40 mg PO DAILY aspirin [Adult Low Dose Aspirin] 81 mg tablet,delayed release (DR/EC) 81 mg PO DAILY fluticasone propionate 50 mcg/actuation spray,suspension 1 spray INTRANASAL DAILY omeprazole 20 mg capsule,delayed release(DR/EC) 20 mg PO DAILY metoprolol tartrate 25 mg tablet 25 mg PO DAILY prednisone 20 MG tablet 20 mg PO BID 5 Days Qty: 10 0RF cefdinir 300 MG capsule 300 mg PO BID 7 Days Qty: 14 0RF phenazopyridine 200 MG tablet 200 pow PO TID Qty: 6 0RF cefdinir 300 MG capsule 300 mg PO BID Qty: 20 0RF prednisone 20 MG tablet 20 mg PO BID Qty: 10 0RF Referrals Follow up/Referrals: Beverly Gerardo APRN [Primary Care Provider] - See instructions Activity Restrictions/Add. Instructions Additional Instructions/Restrictions: Tylenol or ibuprofen for pain. Rest and drink plenty of fluids. Follow-up with primary care provider in the office, call tomorrow to make appointment. Clinical Impressions Clinical Impression: Abdominal pain, Diarrhea Discharge ED Provider: Mo Tracy Adult HPI General Chief complaint: Weakness Stated complaint: diarrhea Time Seen by Provider: 07/01/22 11:18 Mode of Arrival: Wheelchair Source of Information: Patient Limitations: No Limitations Description of Symptoms (Recalled from ER Triage Doc. by RN): Pt reports diarrhea for approx 2 weeks, reports generalized weakness, no appetite. Has not ate or drank anything yet today. Reports diarrhea x3 episodes yesterday, x1 today. Pt reports is scheduled for CT scan here at [facility] tomorrow r/t diarrhea not improving. currently on prescription for flagyl and ciprofloxacin from primary doctor. Pt is tender in lower abd to palpation. History of Present Illness HPI narrative: Patient has had diarrhea for about 2 weeks. Initially had blood in it. Has lower right abdominal pain. Not eating or drinking much. No fever. Saw her primary care provider about a week and a half ago and prescribed ciprofloxacin and Flagyl which is not helping, she had blood work done which was reported to be normal. She has a CT scan of the abdomen ordered for tomorrow. Today she was out of it so therefore brought to the emergency department. Prior abdominal surgeries include hysterectomy and appendectomy. Related Data Home Medications Medication Instructions Recorded Confirmed aspirin 81 mg tablet,delayed 81 mg PO DAILY 02/02/19 06/05/21 release (Adult Low Dose Aspirin) atorvastatin 40 mg tablet 40 mg PO DAILY Cholesterol 02/02/19 04/15/22 citalopram 20 mg tablet (Celexa) 20 mg PO DAILY Anxiety 02/02/19 04/15/22 fluticasone propionate 50 1 spray intranasal DAILY 02/02/19 06/05/21 mcg/actuation nasal spray,suspension levothyroxine 75 mcg capsule 75 mcg PO DAILY thyroid 02/02/19 04/15/22 omeprazole 20 mg capsule,delayed 20 mg PO DAILY GERD 02/02/19 04/15/22 release metoprolol tartrate 25 mg tablet 25 mg PO DAILY 03/01/20 06/05/21 Previous Rx's Medication Instructions Recorded amoxicillin 500 mg capsule 500 mg PO Q12H otitis media 10 06/05/21 days #20 caps cefdinir 300 mg capsule 300 mg PO BID #20 caps 08/31/21 phenazopyridine 200 mg tablet 200 pow PO TID #6 tabs 08/31/21 prednisone 20 mg tablet 20 mg PO BID #10 tabs 01/08/22 cefdinir 300 mg capsule 300 mg PO BID 7 days #14 caps 04/15/22 prednisone 20 mg tablet 20 mg PO BID 5 days #10 tabs 04/15/22 Allergies Allergy/AdvReac Type Severity Reaction Status Date / Time Sulfa (Sulfonamide Allergy Verified 04/15/22 08:47 Antibiotics) [facility] Medical History (Updated 07/01/22 @ 13:26 by Sugar
[2022-07-01 11:30] VITALS: BP 161/73; PULSE 56; RESP 18; O2SAT 98
[2022-07-01 11:35] LABS: Basophils # 0.1 K/mm3 (0-0.2); Basophils % 0.8 % (0.1-2.0); Eosinophils # 0.2 K/mm3 (0.0-0.4); Eosinophils % 2.7 % (0.1-12.0); Hematocrit 34.9 % (37.0-47.0); Hemoglobin 11.4 g/dL (12.2-16.2); Lymphocytes # 1.7 K/mm3 (0.7-4.5); Lymphocytes % 27.4 % (10-50); Mean Corpuscular HGB Conc 32.8 g/dL (31.8-35.4); Mean Corpuscular Hemoglobin 28.1 pg (27.0-31.2); Mean Corpuscular Volume 85.7 fl (81-99); Mean Platelet Volume 7.3 fl (7.4-10.4); Monocytes # 0.4 K/mm3 (0.1-1.0); Monocytes % 5.7 % (1.7-9.3); Neutrophils % 63.4 % (37.0-80.0); Platelet Count 297 K/mm3 (142-424); Red Blood Count 4.07 M/mm3 (4.20-5.40); Red Cell Distribution Width 14.5 % (11.5-17.5); White Blood Count 6.3 K/mm3 (4.8-10.8)
[2022-07-01 11:50] LABS: Chloride 103 mmol/L (98-107); Potassium 4.3 mmoL/L (3.5-5.1); Sodium 139 mmol/L (136-145)
[2022-07-01 11:52] LABS: Alanine Aminotransferase 23 U/L (12-78); Alkaline Phosphatase 74 U/L (38-126); Aspartate Amino Transferase 29 U/L (14-36); Bilirubin,Total 0.2 mg/dl (0.2-1.3); Blood Urea Nitrogen 13 mg/dl (7-17); Creatinine Clearance Estimated 58 mL/min (50-200); Estimated Glomerular Filt Rate 84 ml/min (>60); GFR (African American) 102 ML/MIN (>60)
[2022-07-01 11:53] LABS: Albumin Level 3.8 g/dl (3.5-5.0); Albumin/Globulin Ratio 1.4 (1.1-1.8); Anion Gap 11.3 mEq/L (5-15); Calcium 8.6 mg/dl (8.4-10.2); Carbon Dioxide 29 mmol/L (22.0-30.0); Globulin 2.8 g/dL (1.3-3.2); Glucose 102 mg/dl (74-100); Lipase 55 U/L (23-300); Total Protein,Serum 6.6 g/dl (6.3-8.2)
--- NOTE | 2022-07-01 11:58 | PC.NURSE ---
pt to CT
[2022-07-01 13:09] LABS: Adenovirus F 40/41, stool Not Detected (NotDetected); Astrovirus Not Detected (NotDetected); Campylobacter Not Detected (NotDetected); Clostridium Difficile A/B, PCR Not Detected (NotDetected); Cryptosporidium Not Detected (NotDetected); Cyclospora Cayetanesis Not Detected (NotDetected); Entamoeba histolytica Not Detected (NotDetected); Enteroaggregative E coli Not Detected (NotDetected); Enteropathogenic E coli Not Detected (NotDetected); Enterotoxigenic E coli Not Detected (NotDetected); Giardia lamblia Not Detected (NotDetected); Microscopic, Urine URINE MICROSCOPIC (MICROSCOPIC); Norovirus Not Detected (NotDetected); Plesimonas Shigalloides, PCR Not Detected (NotDetected); Rotavirus A Not Detected (NotDetected); Salmonella, PCR Not Detected (NotDetected); Sapovirus Not Detected (NotDetected); Shiga-like toxin E coli Not Detected (NotDetected); Shigella Enterovasive E coli Not Detected (NotDetected); Vibrio Cholerae Not Detected (NotDetected); Vibrio, PCR Not Detected (NotDetected); Yersinia Entercolitica, PCR Not Detected (NotDetected)
[2022-07-01 13:11] LABS: Appearance,Urine CLEAR (Clear); Bilirubin,Urine Negative (Negative); Blood, Urine Negative (Negative); Color,Urine YELLOW (Yellow); Glucose,Urine (UA) Negative (Negative); Ketones,Urine Negative (Negative); Leukocyte Esterase,Urine Negative (Negative); Nitrate,Urine Negative (Negative); Protein,Urine Negative (Negative); Urobilinogen,Urine 0.2 EU/dl (0.2)
[2022-07-01 13:31] VITALS: BP 168/70; PULSE 56; RESP 20; TEMP 36.7; O2SAT 99
== END 2022-07-01 13:33 | disposition home or self-care (01) ==
PROVIDERS: Emergency Provider Emergency Medicine; PCP Nurse Practitioner Family
DX: R10.9 Unspecified abdominal pain (principal); R19.7 Diarrhea, unspecified; Z79.899 Other long term (current) drug therapy; F41.9 Anxiety disorder, unspecified; E07.9 Disorder of thyroid, unspecified; K21.9 Gastro-esophageal reflux disease without esophagitis; Z88.2 Allergy status to sulfonamides
CPT/HCPCS: 74177; 80053; 81001; 83690; 85025; 87506; 99284; Q9967

== ENCOUNTER → 2022-12-27 12:18 | Outpatient (CLI) | payer MEDICARE, SELFPAY ==
[2022-12-27 13:03] LABS: Basophils % 0.7 % (0.1-2.0); Eosinophils # 0.1 K/mm3 (0.0-0.4); Eosinophils % 1.4 % (0.1-12.0); Hematocrit 36.5 % (37.0-47.0); Hemoglobin 11.8 g/dL (12.2-16.2); Lymphocytes # 1.8 K/mm3 (0.7-4.5); Lymphocytes % 28.4 % (10-50); Mean Corpuscular HGB Conc 32.4 g/dL (31.8-35.4); Mean Corpuscular Hemoglobin 27.5 pg (27.0-31.2); Mean Platelet Volume 7.4 fl (7.4-10.4); Monocytes # 0.3 K/mm3 (0.1-1.0); Monocytes % 5.3 % (1.7-9.3); Neutrophils % 64.3 % (37.0-80.0); Platelet Count 316 K/mm3 (142-424); Red Cell Distribution Width 14.4 % (11.5-17.5); White Blood Count 6.3 K/mm3 (4.8-10.8)
[2022-12-27 13:31] LABS: Alanine Aminotransferase 20 U/L (12-78); Albumin Level 4.6 g/dl (3.5-5.0); Albumin/Globulin Ratio 1.6 (1.1-1.8); Alkaline Phosphatase 96 U/L (38-126); Amylase 88 U/L (30-110); Anion Gap 15.2 mEq/L (5-15); Aspartate Amino Transferase 25 U/L (14-36); Bilirubin,Total 0.8 mg/dl (0.2-1.3); Blood Urea Nitrogen 14 mg/dl (7-17); Calcium 9.5 mg/dl (8.4-10.2); Carbon Dioxide 29 mmol/L (22.0-30.0); Chloride 102 mmol/L (98-107); Estimated Glomerular Filt Rate 84 ml/min (>60); GFR (African American) 101 ML/MIN (>60); Globulin 2.9 g/dL (1.3-3.2); Glucose 95 mg/dl (74-100); Lipase 142 U/L (23-300); Potassium 5.2 mmoL/L (3.5-5.1); Sodium 141 mmol/L (136-145); Total Protein,Serum 7.5 g/dl (6.3-8.2)
[2022-12-29 16:57] LABS: H. pylori Breath Test Negative (Negative)
== END ==
PROVIDERS: PCP Nurse Practitioner Family; Visit Provider Nurse Practitioner Family
DX: R10.10 Upper abdominal pain, unspecified (principal); R10.9 Unspecified abdominal pain
CPT/HCPCS: 36415; 80053; 82150; 83013; 83690; 85025

== ENCOUNTER → 2022-12-31 08:09 | Outpatient (CLI) | payer MEDICARE, SELFPAY ==
--- NOTE | 2022-12-31 08:12 | US_ITS ---
FINAL REPORT CLINICAL HISTORY: LOWER ABD PAIN,ABD CRAMPING,UPPER ABD PAIN FINDINGS: ABDOMINAL ULTRASOUND COMPLETE: TECHNIQUE: Ultrasound images of the abdomen were obtained. FINDINGS: The liver is fatty infiltrated. There are 2 cystic lesions in the liver, the largest measuring 2.4 cm in the smaller measuring 1.9 cm. There may be a few septations in the smaller cyst. Findings are consistent with benign cysts. The gallbladder is normal. The common duct is normal. The pancreas is partially obscured. The right kidney measures 9.6 cm in length and is normal in echogenicity without hydronephrosis. The left kidney measures 9.8 cm in length and is normal in echogenicity without hydronephrosis. There is a 2.4 cm right renal cyst. The spleen is unremarkable. The aorta is normal in caliber. The vena cava is unremarkable. IMPRESSION: Fatty liver with 2 benign cysts. Right renal cyst. Reviewed, Interpreted and Dictated by Shravan Khanna MD Transcribed by Jaison Gil Authenticated and [facility]
== END ==
PROVIDERS: PCP Nurse Practitioner Family; Visit Provider Nurse Practitioner Family
DX: R10.9 Unspecified abdominal pain (principal); R10.10 Upper abdominal pain, unspecified; R10.30 Lower abdominal pain, unspecified
CPT/HCPCS: 76700

== ENCOUNTER → 2023-01-16 09:36 | Outpatient (CLI) | payer MEDICARE, SELFPAY ==
[2023-01-16 09:45] LABS: Adenovirus F 40/41, stool Not Detected (NotDetected); Astrovirus Not Detected (NotDetected); Campylobacter Not Detected (NotDetected); Clostridium Difficile A/B, PCR Not Detected (NotDetected); Cryptosporidium Not Detected (NotDetected); Cyclospora Cayetanesis Not Detected (NotDetected); Entamoeba histolytica Not Detected (NotDetected); Enteroaggregative E coli Not Detected (NotDetected); Enteropathogenic E coli Not Detected (NotDetected); Enterotoxigenic E coli Not Detected (NotDetected); Giardia lamblia Not Detected (NotDetected); Norovirus Not Detected (NotDetected); Plesimonas Shigalloides, PCR Not Detected (NotDetected); Rotavirus A Not Detected (NotDetected); Salmonella, PCR Not Detected (NotDetected); Sapovirus Not Detected (NotDetected); Shiga-like toxin E coli Not Detected (NotDetected); Shigella Enterovasive E coli Not Detected (NotDetected); Vibrio Cholerae Not Detected (NotDetected); Vibrio, PCR Not Detected (NotDetected); Yersinia Entercolitica, PCR Not Detected (NotDetected)
== END ==
PROVIDERS: PCP Nurse Practitioner Family; Visit Provider Internal Medicine
DX: R10.84 Generalized abdominal pain (principal); R19.7 Diarrhea, unspecified; R19.5 Other fecal abnormalities
CPT/HCPCS: 87177; 87506

== ENCOUNTER 2023-01-28 22:48 | Emergency (ER) | payer MEDICARE, SELFPAY ==
[2023-01-28 22:50] VITALS: BP 147/68; PULSE 68; RESP 20; TEMP 36.8; O2SAT 98; BMI 24.7
--- NOTE | 2023-01-28 22:57 | ECG_ITS ---
APPROVED REPORT Exam: Resting ECG HR:66 bpm ECG Measurements Heart Rate 66 AXES WI 108 P 7 QRSd 86 QRS 43 QT 397 T 42 QTc 410 Conclusion SINUS RHYTHM WITH SHORT WI INTERVAL BORDERLINE ECG UNCONFIRMED REPORT Electronically signed by : Carlos A Hoyos MD 01/29/2023 17:29:03
--- NOTE | 2023-01-28 22:59 | CT_ITS ---
PROCEDURE INFORMATION: Exam: CT Abdomen And Pelvis With Contrast Exam date and time: 01/29/2023 12:10 AM Age: 67 years old Clinical indication: Abdominal tenderness and other: Diarrhea; Additional info: Abdominal pain, diarrhea TECHNIQUE: Imaging protocol: Computed tomography of the abdomen and pelvis with contrast. Radiation optimization: All CT scans at this facility use at least one of these dose optimization techniques: automated exposure control; mA and/or kV adjustment per patient size (includes targeted exams where dose is matched to clinical indication); or iterative reconstruction. Contrast material: ISOVUE; Contrast volume: 75 ml; Contrast route: IV; REPORTING DATA: Count of CT and Cardiac NM exams in prior 12 months: This patient has received [address] and 0 known cardiac nuclear medicine studies in the 12 months prior to the current study. COMPARISON: CT ABDOMEN PELVIS W CON 07/01/2022 11:55 AM FINDINGS: Pleural spaces: No pleural effusion or pneumothorax. Suspected trace tree-in-bud opacities in the lower lobes could represent bronchiolitis. The imaged portions of the lungs appear otherwise grossly clear. Heart: The imaged portions of the heart appear grossly unremarkable. Liver: Mild fatty changes of the liver. Multiple cystic lesions in the right hepatic lobe likely represent hepatic cysts. Gallbladder and bile ducts: The gallbladder contains no calcified gallbladder stones. Pancreas: The pancreas appears grossly unremarkable. Spleen: The spleen appears grossly unremarkable. Adrenal glands: The adrenal glands appear grossly normal. Kidneys and ureters: There is bilateral, right more than left hydronephrosis. Calcifications adjacent to the coarse of the left ureter lower 3rd is likely vascular in nature. Similarly calcifications displaced from the right ureter, (series 3, image 64), likely vascular in nature. Stomach and bowel: Distended large bowel with fluid, compatible with diarrheal state. The small bowel contains fluid, compatible with diarrheal state. Distended stomach with fluid. Suspected small hiatal hernia. Appendix: No evidence of appendicitis. Intraperitoneal space: Unremarkable. No free air. No significant fluid collection. Vasculature: There are atherosclerotic calcifications of the abdominal aorta and its branches.. Lymph nodes: Unremarkable. No enlarged lymph nodes. Urinary bladder: Mild thickening of the bladder wall. Reproductive: Status post hysterectomy. Bones/joints: There are degenerative changes of the spine.. No acute fracture. Soft tissues: Unremarkable. IMPRESSION: 1. Mild fatty changes of the liver and multiple cystic lesions, likely hepatic cysts. 2. The large and small bowel contains fluid, compatible with diarrheal state. 3. No free peritoneal fluid or free peritoneal gas. 4. Bilateral hydronephrosis, right more than left. Please correlate with intravenous pyelography. 5. Mild thickening of the bladder wall. Please correlate with urinalysis.
--- NOTE | 2023-01-28 22:59 | XR_ITS ---
PROCEDURE INFORMATION: Exam: XR Chest Exam date and time: 01/29/2023 12:11 AM Age: 67 years old Clinical indication: Other: High blood pressure TECHNIQUE: Imaging protocol: Radiologic exam of the chest. Views: 1 view. COMPARISON: CT ABDOMEN PELVIS W CON 01/29/2023 12:10 AM FINDINGS: Lungs: There are bibasilar opacities likely representing superimposition of breast shadows. Pleural spaces: Unremarkable. No pleural effusion. No pneumothorax. Heart/Mediastinum: The cardiac silhouette appears mildly prominent on portable view. The mediastinal silhouette appears normal. Bones/joints: Unremarkable. IMPRESSION: No evidence of acute radiographic findings in the chest.
[2023-01-28 23:00] VITALS: BP 154/69; PULSE 67; RESP 22; O2SAT 99
[2023-01-28 23:08] LABS: Basophils % 0.1 % (0.1-2.0); Eosinophils # 0.1 K/mm3 (0.0-0.4); Eosinophils % 1.1 % (0.1-12.0); Hematocrit 35.1 % (37.0-47.0); Hemoglobin 11.5 g/dL (12.2-16.2); Lymphocytes # 0.7 K/mm3 (0.7-4.5); Lymphocytes % 5.9 % (10-50); Mean Corpuscular HGB Conc 32.7 g/dL (31.8-35.4); Mean Corpuscular Hemoglobin 27.7 pg (27.0-31.2); Mean Corpuscular Volume 84.8 fl (81-99); Mean Platelet Volume 7.7 fl (7.4-10.4); Monocytes # 0.5 K/mm3 (0.1-1.0); Monocytes % 4.1 % (1.7-9.3); Neutrophils # 10.3 K/mm3 (1.8-7.8); Neutrophils % 88.7 % (37.0-80.0); Platelet Count 276 K/mm3 (142-424); Red Blood Count 4.14 M/mm3 (4.20-5.40); Red Cell Distribution Width 14.5 % (11.5-17.5); White Blood Count 11.7 K/mm3 (4.8-10.8)
[2023-01-28 23:12] LABS: MANUAL DIFFERENTIAL MANUAL DIFFERENTIAL (MANUAL DIFF)
[2023-01-28 23:13] LABS: Chloride 105 mmol/L (98-107); Sodium 140 mmol/L (136-145)
[2023-01-28 23:16] LABS: Alanine Aminotransferase 26 U/L (12-78); Aspartate Amino Transferase 27 U/L (14-36); Blood Urea Nitrogen 15 mg/dl (7-17); Carbon Dioxide 24 mmol/L (22.0-30.0); Creatinine Clearance Estimated 55 mL/min (50-200); Estimated Glomerular Filt Rate 84 ml/min (>60); GFR (African American) 101 ML/MIN (>60)
[2023-01-28 23:17] LABS: Albumin Level 4.3 g/dl (3.5-5.0); Albumin/Globulin Ratio 1.4 (1.1-1.8); Alkaline Phosphatase 75 U/L (38-126); Bilirubin,Total 0.5 mg/dl (0.2-1.3); Globulin 3.1 g/dL (1.3-3.2); Glucose 109 mg/dl (74-100); Total Protein,Serum 7.4 g/dl (6.3-8.2)
[2023-01-28 23:22] LABS: C-Reactive Protein 2.1 mg/L (0-4)
[2023-01-28 23:29] LABS: Eosinophils % 1 % (0-3); Lymphocytes % 3 % (10-50); Monocytes % 1 % (2-9); Neutrophils % 95 % (42-76); Total Cells Counted 100
[2023-01-28 23:30] VITALS: BP 137/66; PULSE 79; RESP 18; O2SAT 96
[2023-01-28 23:30] LABS: Platelet Estimate Normal; RBC Morphology Normal
[2023-01-28 23:36] LABS: Procalcitonin 0.047 ng/mL (0.0-2.0)
[2023-01-28 23:38] LABS: Erythrocyte Sedimentation Rate 33 mm/hr (0-30)
[2023-01-29] VITALS: BP 147/74; PULSE 82; RESP 18; O2SAT 97
[2023-01-29 00:30] VITALS: BP 137/67; PULSE 76; RESP 20; O2SAT 96
[2023-01-29 00:34] LABS: Microscopic, Urine URINE MICROSCOPIC (MICROSCOPIC)
[2023-01-29 00:36] LABS: Appearance,Urine CLEAR (Clear); Bilirubin,Urine Negative (Negative); Blood, Urine Negative (Negative); Color,Urine YELLOW (Yellow); Glucose,Urine (UA) Negative (Negative); Ketones,Urine Negative (Negative); Leukocyte Esterase,Urine Negative (Negative); Nitrate,Urine Negative (Negative); Protein,Urine Negative (Negative); Urobilinogen,Urine 0.2 EU/dl (0.2)
[2023-01-29 00:53] LABS: Bacteria,Urine Trace /lpf
--- NOTE | 2023-01-29 01:11 | PC.NURSE ---
Report to Joanna RN
--- NOTE | 2023-01-29 01:24 | HMH.EDABDPAI ---
Discharge Plan Disposition Patient Disposition: Home, Self-Care Chief Complaint: Abdominal Pain Prescriptions Prescriptions: No Action levothyroxine 75 mcg capsule 75 mcg PO DAILY citalopram [Celexa] 20 mg tablet 20 mg PO DAILY atorvastatin 40 mg tablet 40 mg PO DAILY aspirin [Adult Low Dose Aspirin] 81 mg tablet,delayed release (DR/EC) 81 mg PO DAILY fluticasone propionate 50 mcg/actuation spray,suspension 1 spray INTRANASAL DAILY omeprazole 40 mg capsule,delayed release(DR/EC) 40 mg PO DAILY Label Comments: TAKE 1 CAPSULE BY MOUTH ONCE DAILY 30 MINUTES BEFORE MORNING MEAL Pro Fe 180 mg iron capsule 180 mg PO DAILY Label Comments: TAKE 1 CAPSULE BY MOUTH ONCE DAILY Referrals Follow up/Referrals: Beverly Gerardo APRN [Primary Care Provider] - See instructions Clinical Impressions Clinical Impression: Gastroenteritis Instructions Patient Instructions: DI for Acute Abdominal Pain Discharge ED Provider: Meryl (ED),Desmond Farris Abdominal Pain HPI General Chief Complaint: Abdominal Pain Stated Complaint: High BP/ Nausa,Diarrhea Time Seen by Provider: 01/29/23 01:00 Mode of Arrival: Wheelchair Source of Information: Spouse Limitations: No Limitations Description of Symptoms (Recalled from ER Triage Doc. by RN): 67 F presents with for c/o abdominal pain, nausea, and high blood pressure that began 2 months ago. This evening it is no better and no worse. She has had several work-ups which were essentially benign. She is awaiting a stool sample result and to be scheduled for a HIDA scan. History of Present Illness HPI narrative: pt with ongoing abd pain with nausea and reported diarrhea - has pending eval by gi- has seen pcp - MD complaint: abdominal pain Onset (ago): week(s) Consistency: intermittent Location: diffuse Severity: moderate Associated symptoms: nausea Related Data Home Medications Medication Instructions Recorded Confirmed aspirin 81 mg tablet,delayed 81 mg PO DAILY Heart health 02/02/19 01/29/23 release (Adult Low Dose Aspirin) atorvastatin 40 mg tablet 40 mg PO DAILY Cholesterol 02/02/19 01/29/23 citalopram 20 mg tablet (Celexa) 20 mg PO DAILY Anxiety 02/02/19 01/29/23 fluticasone propionate 50 1 spray intranasal DAILY Allergy 02/02/19 01/29/23 mcg/actuation nasal symptoms spray,suspension levothyroxine 75 mcg capsule 75 mcg PO DAILY thyroid 02/02/19 01/29/23 omeprazole 40 mg capsule,delayed 40 mg PO DAILY Acid reflux 01/29/23 01/29/23 release polysaccharide iron complex 180 mg 180 mg PO DAILY Supplement 01/29/23 01/29/23 iron capsule (Pro Fe) Allergies Allergy/AdvReac Type Severity Reaction Status Date / Time Sulfa (Sulfonamide Allergy Verified 04/15/22 08:47 Antibiotics) [facility] Disclaimer: The information contained in this section may have been updated after the patient was seen, as this information can be updated by other users. Medical History (Updated 01/29/23 @ 01:39 by Desmond Sheth (NATE)MD) Depression GERD (gastroesophageal reflux disease) High cholesterol History of skin cancer Hypothyroid Surgical History (Updated 07/01/22 @ 11:13 by Krystyna Abreu RN) H/O total hysterectomy Social History Smoking Status: Never smoker alcohol intake: never substance use type: denies use current occupational status: retired Travel in the last 8 weeks: None ROS Obtained: Yes All systems reviewed & no additional complaints except as documented Physical Exam General General appearance: alert Head Head exam: normocephalic Eye Eye exam: Present PERRL and EOMI; Absent scleral icterus ENT ENT exam: Present mucous membranes moist Neck Neck exam: Present trachea midline Respiratory Respiratory exam: Present normal lung sounds bilaterally; Absent respiratory distress Cardiovascular Cardiovascular exam: Present regular rate and systolic murmur Abdominal Exam Abdom
[2023-01-29 01:42] VITALS: BP 101/70; PULSE 81; RESP 20; TEMP 36.6
== END 2023-01-29 02:55 | disposition home or self-care (01) ==
PROVIDERS: Emergency Provider Emergency Medicine; PCP Nurse Practitioner Family
DX: K52.9 Noninfective gastroenteritis and colitis, unspecified (principal)
CPT/HCPCS: 71045; 74177; 80053; 81001; 83605; 84145; 85007; 85025; 85651; 86140; 87040; 93005; 96361; 96365; 96375; 96376; 99285; J0696; J2405; Q9967

== ENCOUNTER → 2023-01-30 09:59 | Outpatient (CLI) | payer MEDICARE, SELFPAY ==
[2023-01-30 11:16] LABS: Adenovirus F 40/41, stool Not Detected (NotDetected); Astrovirus Not Detected (NotDetected); Campylobacter Not Detected (NotDetected); Cryptosporidium Not Detected (NotDetected); Cyclospora Cayetanesis Not Detected (NotDetected); Entamoeba histolytica Not Detected (NotDetected); Enteroaggregative E coli Not Detected (NotDetected); Enterotoxigenic E coli Not Detected (NotDetected); Giardia lamblia Not Detected (NotDetected); Plesimonas Shigalloides, PCR Not Detected (NotDetected); Rotavirus A Not Detected (NotDetected); Salmonella, PCR Not Detected (NotDetected); Sapovirus Not Detected (NotDetected); Shiga-like toxin E coli Not Detected (NotDetected); Shigella Enterovasive E coli Not Detected (NotDetected); Vibrio Cholerae Not Detected (NotDetected); Vibrio, PCR Not Detected (NotDetected); Yersinia Entercolitica, PCR Not Detected (NotDetected)
[2023-01-30 14:32] LABS: Clostridium Difficile A/B, PCR Detected (NotDetected); Enteropathogenic E coli Detected (NotDetected)
[2023-01-30 14:33] LABS: Norovirus Detected (NotDetected)
== END ==
PROVIDERS: PCP Nurse Practitioner Family; Visit Provider Emergency Medicine
DX: R19.7 Diarrhea, unspecified (principal); A04.72 Enterocolitis due to Clostridium difficile, not specified as recurrent; A04.0 Enteropathogenic Escherichia coli infection; A08.11 Acute gastroenteropathy due to Norwalk agent
CPT/HCPCS: 87506

== ENCOUNTER → 2023-05-28 23:18 | Outpatient (CLI) | payer MEDICARE, SELFPAY | PROVIDERS: PCP Nurse Practitioner Family; Visit Provider Nurse Practitioner Family | DX: R39.15 Urgency of urination (principal); B96.89 Other specified bacterial agents as the cause of diseases classified elsewhere | CPT/HCPCS: 87086; 87088; 87186 ==

== ENCOUNTER → 2023-08-02 14:20 | Outpatient (CLI) | payer MEDICARE, SELFPAY | PROVIDERS: PCP Nurse Practitioner Family; Visit Provider Nurse Practitioner Family | DX: N39.0 Urinary tract infection, site not specified (principal); R31.9 Hematuria, unspecified; B96.29 Other Escherichia coli [E. coli] as the cause of diseases classified elsewhere | CPT/HCPCS: 87086 ==

== ENCOUNTER → 2023-08-16 11:23 | Outpatient (CLI) | payer MEDICARE, SELFPAY ==
--- NOTE | 2023-08-16 11:26 | XR_ITS ---
FINAL REPORT CLINICAL HISTORY: right upper arm pain, swelling COMPARISON: 03/10/2021 FINDINGS: Two views of the right humerus were obtained. There is no acute fracture or dislocation. The joint spaces are well preserved. There is no acute soft tissue abnormality. IMPRESSION: No acute abnormality identified. Reviewed, Interpreted and Dictated by Shravan Khanna MD Transcribed by Loida Price Authenticated and [facility]
== END ==
PROVIDERS: PCP Nurse Practitioner Family; Visit Provider Nurse Practitioner Family
DX: M79.601 Pain in right arm (principal); M79.89 Other specified soft tissue disorders
CPT/HCPCS: 73060

== ENCOUNTER 2023-08-23 09:14 | Emergency (ER) | payer MEDICARE, SELFPAY ==
[2023-08-23 09:30] VITALS: BP 152/71; PULSE 69; RESP 20; TEMP 37.1; O2SAT 98; BMI 25.8
--- NOTE | 2023-08-23 09:43 | EXP.UTC ---
Discharge Plan Disposition Patient Disposition: Home, Self-Care Condition: Good Prescriptions Prescriptions: No Action levothyroxine 75 mcg capsule 75 mcg PO DAILY citalopram [Celexa] 20 mg tablet 20 mg PO DAILY atorvastatin 40 mg tablet 40 mg PO DAILY aspirin [Adult Low Dose Aspirin] 81 mg tablet,delayed release (DR/EC) 81 mg PO DAILY cyclobenzaprine 10 mg tablet 10 mg PO HS PRN (Reason: muscle spasm) Qty: 30 0RF meloxicam 15 mg tablet 15 mg PO DAILY Qty: 30 2RF omeprazole 40 mg capsule,delayed release(DR/EC) 40 mg PO DAILY Patient Comments: TAKE 1 CAPSULE BY MOUTH ONCE DAILY 30 MINUTES BEFORE MORNING MEAL Referrals Follow up/Referrals: Beverly Gerardo APRN [Primary Care Provider] - See instructions Activity Restrictions/Add. Instructions Additional Instructions/Restrictions: *Monitor Temp, Over the counter Motrin or Tylenol as directed/as needed Tylenol every 4 hours and Motrin every 6 hours (as long as your family doctor has told you that you can take it) for fever or pain. and straight to ER if unable to lower temp less than 101.0 after medication given *Warm salt water gargles may help to soothe the throat *Throat Lozenges? *Warm fluids like tea with honey may help to soothe the throat? *Sleep elevated *Humidifier/Vaporizer Your throat swab was sent for culture. Those results are typically sent to your primary care. Be sure to follow up in 2-3 days with your family doctor/primary care physician if no improvement so they can review those result and treat if necessary. If you don?t have a primary care doctor, I recommend you get one but in the mean time, you will have to return to a walk in clinic Follow up IMMEDIATELY for new or worsening symptoms or no Noticeable improvement over the next 48-72 hours. 911 for difficulty breathing or swallowing You were tested for today for COVID19 your test result should be back in the next 24hrs, you may check your results on the [facility] if you are positive you must Quarantine for 5 days Clinical Impressions Clinical Impression: Viral upper respiratory infection Instructions Patient Instructions: DI for Viral Upper Respiratory Infection -- Adult Discharge ED Provider: Yesenia Lockhart [facility] [place] HPI General Stated complaint: sore throat,head congestion Mode of Arrival: Ambulatory Source of Information: Patient Limitations: No Limitations Time Seen by Provider: 08/23/23 09:43 Description of Symptoms (Recalled from Triage Doc. by RN): PATIENT C/O SORE THROAT, CONGESTION AND RUNNY NOSE SINCE LAST NIGHT HEENT Symptoms (Recalled from RN notes): Yes Resp Symptoms (Recalled from RN notes): No Skin Symptoms (Recalled from RN notes): No MS Symptoms (Recalled from RN notes): No Functional Status (Recalled from RN notes): WNL History of Present Illness Provider Complaint: Patient states that yesterday she started with sore throat, runny nose and head congestion States that as the day went on she continued to feel worse So this morning her throat was still hurting and her sinuses was all stopped up so she came in to get checked Related Data Home Medications Medication Instructions Recorded Confirmed aspirin 81 mg tablet,delayed 81 mg PO DAILY Heart health 02/02/19 08/23/23 release (Adult Low Dose Aspirin) atorvastatin 40 mg tablet 40 mg PO DAILY Cholesterol 02/02/19 08/23/23 citalopram 20 mg tablet (Celexa) 20 mg PO DAILY Anxiety 02/02/19 08/23/23 levothyroxine 75 mcg capsule 75 mcg PO DAILY thyroid 02/02/19 08/23/23 omeprazole 40 mg capsule,delayed 40 mg PO DAILY Acid reflux 01/29/23 08/23/23 release Previous Rx's Medication Instructions Recorded cyclobenzaprine 10 mg tablet 10 mg PO HS PRN muscle spasm #30 08/16/23 tabs meloxicam 15 mg tablet 15 mg PO DAILY #30 tabs 08/16/23 Allergies Allergy/AdvReac Type Severity Reaction Status Date / Time nitrofurant
[2023-08-23 09:51] LABS: UTC Strep Screen (Rapid) Negative (Negative)
[2023-08-23 09:52] LABS: UTC Influenza A Antigen Negative (Negative); UTC Influenza B Antigen Negative (Negative)
[2023-08-23 10:02] VITALS: BP 152/71; PULSE 69; RESP 20; TEMP 37.1; O2SAT 98
== END 2023-08-23 10:04 | disposition home or self-care (01) ==
PROVIDERS: Emergency Provider Nurse Practitioner; PCP Nurse Practitioner Family
DX: J06.9 Acute upper respiratory infection, unspecified (principal); R09.81 Nasal congestion; R07.0 Pain in throat; B34.9 Viral infection, unspecified; K21.9 Gastro-esophageal reflux disease without esophagitis; E03.9 Hypothyroidism, unspecified; E78.5 Hyperlipidemia, unspecified
CPT/HCPCS: 87635; 87804; 87880; 99212; 99213; G0463

== ENCOUNTER 2023-09-17 08:48 | Outpatient (CLI) | payer MEDICARE, SELFPAY ==
--- NOTE | 2023-09-17 08:49 | MR_ITS ---
FINAL REPORT CLINICAL HISTORY: Right upper arm pain and decrease range of motion. RIGHT HUMERUS PAIN. NO INJURY OR TRAUMA FINDINGS: Multiplanar MR imaging was obtained of the right humerus without contrast. The visualized bony structures are intact. There is no evidence of fracture or bone marrow edema. There is no bony mass. The musculature is intact. There is no soft tissue mass or cyst. There is fluid surrounding the long head of the biceps tendon in the bicipital groove worrisome for biceps tenosynovitis. IMPRESSION: Biceps tenosynovitis. Reviewed, Interpreted and Dictated by Gabriele Walters III, MD Transcribed by Vanessa Pimentel Authenticated and [facility]
== END 2023-09-17 23:59 ==
LOC: RAD 08:49
PROVIDERS: PCP Nurse Practitioner Family; Visit Provider Nurse Practitioner Family
DX: M79.601 Pain in right arm (principal); M79.89 Other specified soft tissue disorders
CPT/HCPCS: 73218

== ENCOUNTER 2023-10-22 14:59 | Outpatient (CLI) | payer MEDICARE, SELFPAY ==
[2023-10-22 15:37] LABS: Basophils % 0.3 % (0.1-2.0); Eosinophils # 0.2 K/mm3 (0.0-0.4); Hematocrit 37.4 % (37.0-47.0); Hemoglobin 12.1 g/dL (12.2-16.2); Lymphocytes # 2.1 K/mm3 (0.7-4.5); Lymphocytes % 25.6 % (10-50); Mean Corpuscular HGB Conc 32.3 g/dL (31.8-35.4); Mean Corpuscular Hemoglobin 27.8 pg (27.0-31.2); Mean Corpuscular Volume 86.1 fl (81-99); Mean Platelet Volume 8.5 fl (7.4-10.4); Monocytes # 0.4 K/mm3 (0.1-1.0); Monocytes % 5.1 % (1.7-9.3); Neutrophils # 5.4 K/mm3 (1.8-7.8); Neutrophils % 66.9 % (37.0-80.0); Platelet Count 344 K/mm3 (142-424); Red Blood Count 4.34 M/mm3 (4.20-5.40)
[2023-10-22 16:24] LABS: Thyroid Stimulating Hormone 2.67 uIU/mL (0.465-4.68)
[2023-10-22 16:43] LABS: Vitamin B12 245 pg/mL (239-931)
[2023-10-22 16:51] LABS: Iron 85 ug/dL (37-170)
[2023-10-22 17:00] LABS: Total Iron Binding Capacity 316 ug/dL (265-497)
[2023-10-22 17:27] LABS: Ferritin 15.3 ng/ml (11.1-264)
== END 2023-10-22 23:59 ==
PROVIDERS: PCP Nurse Practitioner Family; Visit Provider Nurse Practitioner Family
DX: D50.9 Iron deficiency anemia, unspecified (principal); E03.9 Hypothyroidism, unspecified
CPT/HCPCS: 82607; 82728; 83540; 83550; 84443; 85025

== ENCOUNTER 2023-11-05 09:00 | Outpatient (RCR) | payer MEDICARE, SELFPAY | END 2024-02-05 10:00 | disposition home or self-care (01) | LOC: OT 09:00 | PROVIDERS: PCP Nurse Practitioner Family; Visit Provider Nurse Practitioner Family | DX: M65.822 Other synovitis and tenosynovitis, left upper arm (principal) | CPT/HCPCS: 97010; 97014; 97016; 97035; 97110; 97140; 97164; 97165; 97530; G0283 ==

== ENCOUNTER 2023-11-09 11:54 | Emergency (ER) | payer MEDICARE, SELFPAY ==
[2023-11-09] VITALS (8 sets, daily range): BP systolic 136–170; BP diastolic 53–83; PULSE 52–67; RESP 16–20; TEMP 36.7; O2SAT 95–98; BMI 24.7
[2023-11-09 12:12] LABS: Coronavirus 19, PCR Not Detected (NotDetected); Influenza A, PCR Not Detected (NotDetected); Influenza B, PCR Not Detected (NotDetected)
--- NOTE | 2023-11-09 12:15 | ECG_ITS ---
APPROVED REPORT Exam: Resting ECG HR:57 bpm ECG Measurements Heart Rate 57 AXES MA 112 P 18 QRSd 81 QRS 61 QT 437 T 45 QTc 432 Conclusion SINUS BRADYCARDIA WITH SHORT MA INTERVAL BORDERLINE ECG UNCONFIRMED REPORT Electronically signed by : CHARLETTE RAMIREZ, 11/09/2023 15:23:15
--- NOTE | 2023-11-09 12:16 | CT_ITS ---
PROCEDURE INFORMATION: Exam: CT Head Without Contrast Exam date and time: 11/09/2023 12:51 PM Age: 67 years old Clinical indication: Pain; Headache; Additional info: Acute calvarial headache TECHNIQUE: Imaging protocol: Computed tomography of the head without contrast. Radiation optimization: All CT scans at this facility use at least one of these dose optimization techniques: automated exposure control; mA and/or kV adjustment per patient size (includes targeted exams where dose is matched to clinical indication); or iterative reconstruction. COMPARISON: CR XR FACIAL BONES MIN 3V 03/10/2021 12:11 PM FINDINGS: Brain: No evidence of acute parenchymal hemorrhage, extra-axial collection or local regional mass effect. Cerebral ventricles: The ventricles, sulci and cisterns are normal in size and configuration. No hydrocephalus or midline structure shift Pituitary gland and sella: Sellar/parasellar structures, orbits and craniocervical junction are unremarkable Paranasal sinuses: Visualized sinuses are unremarkable. No fluid levels. Mastoid air cells: Visualized mastoid air cells are well aerated. Bones/joints: No calvarial fracture Soft tissues: Unremarkable. IMPRESSION: No acute intracranial abnormality. No calvarial fracture.
--- NOTE | 2023-11-09 12:17 | ED_ITS ---
Discharge Plan Disposition Patient Disposition: Home, Self-Care Chief Complaint: Dizziness Prescriptions Prescriptions: No Action Pro Fe 180 mg iron capsule 180 mg PO DAILY omeprazole 40 mg capsule,delayed release(DR/EC) 40 mg PO DAILY 90 Days Qty: 90 1RF meloxicam 15 mg tablet 15 mg PO DAILY 90 Days Qty: 90 2RF aspirin [Adult Low Dose Aspirin] 81 mg tablet,delayed release (DR/EC) 81 mg PO DAILY atorvastatin 40 mg tablet 40 mg PO DAILY 30 Days Qty: 30 5RF citalopram [Celexa] 20 mg tablet 20 mg PO DAILY 30 Days Qty: 30 5RF levothyroxine 75 mcg capsule 75 mcg PO DAILY 30 Days Qty: 30 5RF Referrals Follow up/Referrals: Beverly Gerardo APRN [Primary Care Provider] - See instructions Activity Restrictions/Add. Instructions Additional Instructions/Restrictions: At this time it was felt you are safe to be discharged home. If new or worsening symptoms please do not hesitate to return the emergency department. I suspect that a virus is likely causing all of your symptoms and I am hopeful that you will get better in the coming days. However if your symptoms persist please follow-up with your family doctor for continued evaluation and possible ENT or neurology referral. Clinical Impressions Clinical Impression: Headache, Dizziness Discharge ED Provider: Eddie Tejeda General Adult HPI General Chief complaint: Dizziness Stated complaint: dizziness headache lethargy Time Seen by Provider: 11/09/23 11:59 Mode of Arrival: Ambulatory Source of Information: Patient Limitations: No Limitations Description of Symptoms (Recalled from ER Triage Doc. by RN): Patient reports being tired, weak, dizzy and just sleepy with a headache that started yesterday. History of Present Illness HPI narrative: Patient is a 67-year-old female with past medical history of hypothyroidism, hypertension, hyperlipidemia, paroxysmal atrial fibrillation who presents emergency department for increased tiredness, global weakness, dizziness, headache. Onset was acute, waking up with it yesterday morning. Patient has had headaches before that are typically bifrontal however this is over her superior calvarium. Denies trauma. The room is not spinning however she is lightheaded. No focal extremity weakness, no falls. 2 weeks ago she was diagnosed with borderline low iron levels and low vitamin B12 levels for which she has been taking oral medication. No other acute complaints at this time. Related Data Home Medications Medication Instructions Recorded Confirmed aspirin 81 mg tablet,delayed 81 mg PO DAILY Heart health 02/02/19 10/22/23 release (Adult Low Dose Aspirin) polysaccharide iron complex 180 mg 180 mg PO DAILY 08/27/23 10/22/23 iron capsule (Pro Fe) Previous Rx's Medication Instructions Recorded atorvastatin 40 mg tablet 40 mg PO DAILY Cholesterol 30 days 10/16/23 #30 tabs citalopram 20 mg tablet (Celexa) 20 mg PO DAILY Anxiety 30 days #30 10/16/23 tabs levothyroxine 75 mcg capsule 75 mcg PO DAILY thyroid 30 days 10/16/23 #30 caps meloxicam 15 mg tablet 15 mg PO DAILY 90 days #90 tabs 10/22/23 omeprazole 40 mg capsule,delayed 40 mg PO DAILY Acid reflux 90 days 10/22/23 release #90 caps Allergies Allergy/AdvReac Type Severity Reaction Status Date / Time nitrofurantoin Allergy Verified 10/22/23 11:44 [From Macrobid] Sulfa (Sulfonamide Allergy Verified 10/22/23 11:44 Antibiotics) [facility] Disclaimer: The information contained in this section may have been updated after the patient was seen, as this information can be updated by other users. Medical History Abdominal pain Acute cystitis without hematuria Ankle pain Depression Diarrhea Dysuria Gastroenteritis GERD (gastroesophageal reflux disease) High cholesterol History of skin cancer Hypothyroid Laceration Laceration of finger UTI (urinary tract infection) Viral upper respiratory infection Surgical History H/O colonoscopy H/O total hysterectomy Social History Smoking Status: Never smoker alcohol intake: never substance use type: denies use current occupational status: retired Travel in the last 8 weeks: None ROS Obtained: Yes Systems reviewed as appropriate & no additional complaints except as documented Physical Exam General General appearance: alert and in no apparent distress Head Head exam: atraumatic and normocephalic Eye Eye exam: Present PERRL and EOMI ENT ENT exam: Present mucous membranes moist and TM's normal bilaterally Neck Neck exam: Present normal inspection Chest Chest inspection: Present normal inspection and symmetric chest wall rise Respiratory Respiratory exam: Present normal lung sounds bilaterally; Absent respiratory distress Cardiovascular Cardiovascular exam: Present regular rate and normal rhythm Abdominal Exam Abdominal exam: Present soft; Absent tenderness Extremities Exam Extremities exam: Present normal inspection Neurological Exam Neurological exam: Present alert, CN II-XII intact and normal gait; Absent motor sensory deficit Psychiatric Psychiatric exam: Present normal affect Skin Skin exam: Present warm and dry Medical Decision Making [place] Inquiry Pt receiving controlled substance: No Vital Signs: 11/09/23 11:56 11/09/23 12:00 11/09/23 12:30 Temperature 98.1 F Temperature Source Oral Pulse Rate 58 L 62 Pulse Rate [Radial] 67 Respiratory Rate 16 20 20 Blood Pressure 156/76 H 165/78 H Blood Pressure [Right Arm] 157/83 H Blood Pressure Mean 102 107 Blood Pressure Mean [Right Arm] 107 Blood Pressure Source [Right Arm] Automatic Cuff Blood Pressure Position [Right Arm] Sitting 02 Sat by Pulse Oximetry 95 97 96 Oxygen Delivery Method Room Air 11/09/23 13:00 11/09/23 13:30 11/09/23 14:00 Temperature Temperature Source Pulse Rate 62 63 52 L Pulse Rate [Radial] Respiratory Rate 20 20 20 Blood Pressure 170/63 H 154/62 H 160/65 H Blood Pressure [Right Arm] Blood Pressure Mean 98 92 96 Blood Pressure Mean [Right Arm] Blood Pressure Source [Right Arm] Blood Pressure Position [Right Arm] 02 Sat by Pulse Oximetry 96 96 98 Oxygen Delivery Method 11/09/23 14:31 Temperature Temperature Source Pulse Rate 52 L Pulse Rate [Radial] Respiratory Rate 20 Blood Pressure 136/53 L Blood Pressure [Right Arm] Blood Pressure Mean 80 Blood Pressure Mean [Right Arm] Blood Pressure Source [Right Arm] Blood Pressure Position [Right Arm] 02 Sat by Pulse Oximetry 98 Oxygen Delivery Method Lab Data Lab Results 11/09/23 12:00: SARS-CoV-2 (PCR) Not detected, Influenza A Untype (PCR) Not detected, Influenza Type B (PCR) Not detected 11/09/23 12:20: WBC 6.6, RBC 4.01 L, Hgb 11.7 L, Hct 35.4 L, MCV 88.2, MCH 29.1, MCHC 33.0, RDW 14.9, Plt Count 296, MPV 7.3 L, Neut % (Auto) 63.6, Lymph % (Auto) 27.2, [place] % (Auto) 6.0, Eos % (Auto) 2.4, Baso % (Auto) 0.9, Neut # (Auto) 4.2, Lymph # (Auto) 1.8, [place] # (Auto) 0.4, Eos # (Auto) 0.2, Baso # (Auto) 0.1, Sodium 138, Potassium 4.4, Chloride 107, Carbon Dioxide 30, Anion Gap 5.4, BUN 13, Creatinine 0.70, Estimated Creat Clear 55, Estimated GFR 84, Est GFR ( Amer) 101, Glucose 91, Calcium 9.2, Magnesium 2.2, Total Bilirubin 0.6, AST 27, ALT 27, Alkaline Phosphatase 82, Total Protein 7.0, Albumin 4.0, Globulin 3.0, Albumin/Globulin Ratio 1.3, TSH 1.49, Free T4 1.11 11/09/23 13:55: Urine Color Yellow, Urine Appearance Clear, Urine pH 7.5, Ur Specific [place] 1.010, Urine Protein Negative, Urine Glucose (UA) Negative, Urine Ketones Negative, Urine Blood Negative, Urine Nitrate Negative, Urine Bilirubin Negative, Urine Urobilinogen 0.2, Ur Leukocyte Esterase Negative, Urine RBC None, Urine WBC None, Ur Squamous Epith Cells Occasional, Urine Bacteria Trace 11/09/23 12:20 11/09/23 12:20 Orders (Tests/Meds): ED MEDICATIONS Generic Name Dose Route Start Last Admin Trade Name Freq PRN Reason Stop Dose Admin Sodium Chloride 10 ml 11/09/23 13:07 11/09/23 13:10 Sodium Chloride 0.9% 10ml Syr (Rad Only) IV 12/09/23 13:06 10 ml NEEDED PRN Administration Maintain IV Site Discontinued Medications Generic Name Dose Route Start Last Admin Trade Name Freq PRN Reason Stop Dose Admin Acetaminophen 1,000 mg 11/09/23 12:15 11/09/23 13:06 Acetaminophen 1,000mg/100ml Vial IV 11/09/23 12:16 1,000 mg ONCE ONE Administration Diphenhydramine HCl 50 mg 11/09/23 12:15 11/09/23 13:05 Diphenhydramine 50mg/Ml Vial IV 11/09/23 12:16 50 mg ONCE ONE Administration Lactated Ringer's 1,000 mls @ 999 mls/hr 11/09/23 12:15 11/09/23 13:11 Lactated Ringer's 1000 Ml Bag IV 11/09/23 13:15 999 mls/hr .Q1H1M ONE Administration Iopamidol 100 ml 11/09/23 13:07 11/09/23 13:10 Iopamidol-370 (76%);100ml Bottle IV 11/09/23 13:08 100 ml ONCE ONE Administration Prochlorperazine Edisylate 5 mg 11/09/23 12:15 11/09/23 13:05 Prochlorperazine 10mg/2ml Vial IV 11/09/23 12:16 5 mg ONCE ONE Administration Sodium Chloride 50 ml 11/09/23 13:07 11/09/23 13:10 0.9 % Sodium Chloride 50 Ml Vial IV 11/09/23 13:08 50 ml ONCE ONE Administration ORDERS Category Date Time Status CT angio head Stat Cat Scan 11/09/23 12:[address] angio neck Stat Cat Scan 11/09/23 12:[address] head/brain wo con Stat Cat Scan 11/09/23 12:16 Completed CBC w/Auto Diff [Complete Blood Count Auto Diff] Stat Lab 11/09/23 12:20 Completed CMP [Comprehensive Metabolic Panel] Stat Lab 11/09/23 12:20 Completed Free T4 (Free Thyroxine) Stat Lab 11/09/23 12:20 Completed MG [Magnesium] Stat Lab 11/09/23 12:20 Completed Rapid PCR Covid and Flu A/B Stat Lab 11/09/23 12:00 Completed TSH [Thyroid Stimulating Hormone] Stat Lab 11/09/23 12:20 Completed UA [Urinalysis and Microscopic] Stat Lab 11/09/23 13:55 Completed ECG Data Tracing #1: Independently interpreted by me, rate is 57, rhythm is regular, axis is normal, no ST elevation in anatomical contiguous leads, QTc 432. Medical Decision Narrative: In summary patient is a 67-year-old female with past medical history described above who presents emergency department for evaluation of headache and dizziness, global weakness. Patient is hemodynamically stable nontoxic- appearing upon arrival, afebrile. Differential diagnosis includes viral syndrome, primary headache, intracranial hemorrhage, electrolyte abnormality, CVA, among others. Workup will be conducted with hematologic labs, viral swab, noncontrasted CT scan of the head and CTA of the head and neck given persistent dizziness. Patient has a nonfocal neurologic exam, no nystagmus. Initial interventions include crystalloid bolus, Tylenol, Compazine, diphenhydramine. Initial workup reviewed by me, hematologic labs are nonactionable, viral swab negative. Noncontrasted CT scan of the head and CTA of the head and neck no acute pathology. Given duration of symptoms greater than 24 hours if patient was having true CVA I would suspect to see radiographic changes on CT scan. Patient also has a nonfocal neurologic exam. Upon repeat evaluation patient had resolution of headache, was ambulatory bedside. Urinalysis interpreted by me and not consistent with infection. Viral swab negative. Given this patient is appropriate for outpatient management at this time was given return precautions. Critical Care Critical Care Time Critical Care Time: No
--- NOTE | 2023-11-09 12:18 | CT_ITS ---
PROCEDURE INFORMATION: Exam: CTA Head With Contrast, Arteriography Exam date and time: 11/09/2023 12:54 PM Age: 67 years old Clinical indication: Dizziness and giddiness; Additional info: Persistant dizziness TECHNIQUE: Imaging protocol: Computed tomographic angiography of the head with contrast. Exam focused on the arteries. 3D rendering (Not supervised by radiologist): MIP and/or 3D reconstructed images were created by the technologist. Radiation optimization: All CT scans at this facility use at least one of these dose optimization techniques: automated exposure control; mA and/or kV adjustment per patient size (includes targeted exams where dose is matched to clinical indication); or iterative reconstruction. Contrast material: ISOVUE; Contrast volume: 100 ml; Contrast route: INTRAVENOUS (IV); COMPARISON: CT HEAD/BRAIN WO CON 11/09/2023 12:51 PM FINDINGS: ANTERIOR CIRCULATION: Right internal carotid artery: Intracranial segment is patent with no significant stenosis. No aneurysm. Right middle cerebral artery: No occlusion or significant stenosis. No aneurysm. Right anterior cerebral artery: No occlusion or significant stenosis. No aneurysm. Left internal carotid artery: Intracranial segment is patent with no significant stenosis. No aneurysm. Left middle cerebral artery: No occlusion or significant stenosis. No aneurysm. Left anterior cerebral artery: No occlusion or significant stenosis. No aneurysm. POSTERIOR CIRCULATION: Right vertebral artery: No occlusion or significant stenosis. No aneurysm. Left vertebral artery: No occlusion or significant stenosis. No aneurysm. Basilar artery: No occlusion or significant stenosis. No aneurysm. Right posterior cerebral artery: No occlusion or significant stenosis. No aneurysm. Left posterior cerebral artery: No occlusion or significant stenosis. No aneurysm. Brain: No definite mass, mass effect, or midline shift. Cerebral ventricles: No ventriculomegaly. Bones/joints: Unremarkable. No acute fracture. Soft tissues: Unremarkable. IMPRESSION: No large vessel stenosis or occlusion.
--- NOTE | 2023-11-09 12:18 | CT_ITS ---
PROCEDURE INFORMATION: Exam: CTA Neck With Contrast Exam date and time: 11/09/2023 12:54 PM Age: 67 years old Clinical indication: Dizziness and giddiness; Additional info: Persistant dizziness TECHNIQUE: Imaging protocol: Computed tomographic angiography of the neck with contrast. Exam focused on the cervical segments of the vasculature. 3D rendering (Not supervised by radiologist): MIP and/or 3D reconstructed images were created by the technologist. Radiation optimization: All CT scans at this facility use at least one of these dose optimization techniques: automated exposure control; mA and/or kV adjustment per patient size (includes targeted exams where dose is matched to clinical indication); or iterative reconstruction. Contrast material: ISOVUE; Contrast volume: 100 ml; Contrast route: INTRAVENOUS (IV); COMPARISON: CT ANGIO HEAD 11/09/2023 12:54 PM FINDINGS: Right common carotid artery: No stenosis. No dissection or occlusion. Right internal carotid artery: No stenosis of the extracranial segment. No dissection or occlusion. Right external carotid artery: No occlusion or stenosis of the origin. Left common carotid artery: No stenosis. No dissection or occlusion. Left internal carotid artery: No stenosis of the extracranial segment. No dissection or occlusion. Left external carotid artery: No occlusion or stenosis of the origin. Right vertebral artery: No stenosis. No dissection or occlusion. Left vertebral artery: No stenosis. No dissection or occlusion. Lymph nodes: Nonspecific prominent supraclavicular nodes, none of which are enlarged by size criteria. Soft tissues: Normal. No significant soft tissue swelling. Bones/joints: No acute fracture. IMPRESSION: No evidence of occlusion or dissection along the major cervical arteries. REFERENCES: NASCET CRITERIA. The degree of stenosis in the cervical segment of the internal carotid artery is based on NASCET criteria. Normal is no stenosis. Mild is less than 50% stenosis. Moderate is 50-69% stenosis. Severe is 70% to 99% stenosis. Total occlusion is no detectable patent lumen.
[2023-11-09 12:31] LABS: Basophils # 0.1 K/mm3 (0-0.2); Basophils % 0.9 % (0.1-2.0); Eosinophils # 0.2 K/mm3 (0.0-0.4); Eosinophils % 2.4 % (0.1-12.0); Hematocrit 35.4 % (37.0-47.0); Hemoglobin 11.7 g/dL (12.2-16.2); Lymphocytes # 1.8 K/mm3 (0.7-4.5); Lymphocytes % 27.2 % (10-50); Mean Corpuscular Hemoglobin 29.1 pg (27.0-31.2); Mean Corpuscular Volume 88.2 fl (81-99); Mean Platelet Volume 7.3 fl (7.4-10.4); Monocytes # 0.4 K/mm3 (0.1-1.0); Neutrophils # 4.2 K/mm3 (1.8-7.8); Neutrophils % 63.6 % (37.0-80.0); Platelet Count 296 K/mm3 (142-424); Red Blood Count 4.01 M/mm3 (4.20-5.40); Red Cell Distribution Width 14.9 % (11.5-17.5); White Blood Count 6.6 K/mm3 (4.8-10.8)
[2023-11-09 12:39] LABS: Chloride 107 mmol/L (98-107); Sodium 138 mmol/L (136-145)
[2023-11-09 12:40] LABS: Potassium 4.4 mmoL/L (3.5-5.1)
[2023-11-09 12:42] LABS: Alanine Aminotransferase 27 U/L (12-78); Albumin/Globulin Ratio 1.3 (1.1-1.8); Alkaline Phosphatase 82 U/L (38-126); Anion Gap 5.4 mEq/L (5-15); Aspartate Amino Transferase 27 U/L (14-36); Bilirubin,Total 0.6 mg/dl (0.2-1.3); Blood Urea Nitrogen 13 mg/dl (7-17); Carbon Dioxide 30 mmol/L (22.0-30.0); Creatinine Clearance Estimated 55 mL/min (50-200); Estimated Glomerular Filt Rate 84 ml/min (>60); GFR (African American) 101 ML/MIN (>60)
[2023-11-09 12:43] LABS: Calcium 9.2 mg/dl (8.4-10.2); Glucose 91 mg/dl (74-100); Magnesium 2.2 mg/dl (1.6-2.3)
--- NOTE | 2023-11-09 12:58 | PC.NURSE ---
PT RETURNED FROM CT
[2023-11-09] MEDS: diphenhydrAMINE 50MG/ML VIAL 50 MG IV (13:05)
[2023-11-09] MEDS: PROCHLORPERAZINE 10MG/2ML VIAL 5 MG IV (13:05)
[2023-11-09 13:06] LABS: Free T4 (Free Thyroxine) 1.11 ng/dl (0.78-2.19)
[2023-11-09] MEDS: ACETAMINOPHEN 1,000MG/100ML VIAL 1000 MG IV (13:06)
[2023-11-09] MEDS: IOPAMIDOL-370 (76%);100ML BOTTLE 100 ML IV (13:10)
[2023-11-09] MEDS: SODIUM CHLORIDE 0.9% 10ML SYR (RAD ONLY) 10 ML IV (13:10)
[2023-11-09] MEDS: 0.9 % SODIUM CHLORIDE 50 ML VIAL IV (13:10)
[2023-11-09] MEDS: LACTATED RINGERS 1000ML 1,000 ML 999 ML IV (13:11)
[2023-11-09 13:14] LABS: Thyroid Stimulating Hormone 1.49 uIU/mL (0.465-4.68)
--- NOTE | 2023-11-09 13:24 | PC.NURSE ---
DR RAMIREZ AT BEDSIDE TO UPDATE PT AND FAMILY
[2023-11-09 13:59] LABS: Microscopic, Urine URINE MICROSCOPIC (MICROSCOPIC)
[2023-11-09 14:14] LABS: Appearance,Urine CLEAR (Clear); Bilirubin,Urine Negative (Negative); Blood, Urine Negative (Negative); Color,Urine YELLOW (Yellow); Glucose,Urine (UA) Negative (Negative); Ketones,Urine Negative (Negative); Leukocyte Esterase,Urine Negative (Negative); Nitrate,Urine Negative (Negative); PH,Urine 7.5 (5.0-8.5); Protein,Urine Negative (Negative); Urobilinogen,Urine 0.2 EU/dl (0.2)
[2023-11-09 14:26] LABS: Bacteria,Urine Trace /lpf; Squamous Epithelial Cell,Urine Occasional #/hpf (0-5)
== END 2023-11-09 14:59 | disposition home or self-care (01) ==
PROVIDERS: Emergency Provider Emergency Medicine; PCP Nurse Practitioner Family
DX: G44.89 Other headache syndrome (principal); R00.1 Bradycardia, unspecified; R42 Dizziness and giddiness; R53.83 Other fatigue; R53.1 Weakness; I10 Essential (primary) hypertension; E78.5 Hyperlipidemia, unspecified; E03.9 Hypothyroidism, unspecified; K21.9 Gastro-esophageal reflux disease without esophagitis; I48.0 Paroxysmal atrial fibrillation
CPT/HCPCS: 70450; 70496; 70498; 80053; 81001; 83735; 84439; 84443; 85025; 87636; 93005; 96361; 96374; 96375; 99285; J0131; Q9967

== ENCOUNTER 2023-12-13 07:57 | Outpatient (CLI) | payer MEDICARE, SELFPAY ==
[2023-12-13 15:21] LABS: Basophils # 0.1 K/mm3 (0-0.2); Eosinophils # 0.1 K/mm3 (0.0-0.4); Hemoglobin 11.5 g/dL (12.2-16.2); Lymphocytes # 1.6 K/mm3 (0.7-4.5); Lymphocytes % 23.5 % (10-50); Mean Corpuscular HGB Conc 31.8 g/dL (31.8-35.4); Mean Corpuscular Volume 91.1 fl (81-99); Mean Platelet Volume 8.8 fl (7.4-10.4); Monocytes # 0.5 K/mm3 (0.1-1.0); Monocytes % 7.1 % (1.7-9.3); Neutrophils # 4.5 K/mm3 (1.8-7.8); Neutrophils % 66.4 % (37.0-80.0); Platelet Count 296 K/mm3 (142-424); Red Blood Count 3.95 M/mm3 (4.20-5.40); Red Cell Distribution Width 14.8 % (11.5-17.5); White Blood Count 6.8 K/mm3 (4.8-10.8)
[2023-12-13 16:18] LABS: Iron 65 ug/dL (37-170)
[2023-12-13 16:27] LABS: Total Iron Binding Capacity 304 ug/dL (265-497)
[2023-12-13 16:42] LABS: Vitamin B12 897 pg/mL (239-931)
[2023-12-13 16:54] LABS: Ferritin 14.6 ng/ml (11.1-264)
== END 2023-12-13 23:59 | disposition home or self-care (01) ==
LOC: LAB.DROPOF 12-15 07:58
PROVIDERS: PCP Nurse Practitioner Family; Visit Provider Nurse Practitioner Family
DX: D50.9 Iron deficiency anemia, unspecified (principal)
CPT/HCPCS: 82607; 82728; 83540; 83550; 85025

== ENCOUNTER 2024-03-17 12:15 | Outpatient (CLI) | payer MEDICARE, SELFPAY ==
[2024-03-17 12:34] LABS: Basophils % 0.6 % (0.1-2.0); Eosinophils # 0.1 K/mm3 (0.0-0.4); Eosinophils % 1.8 % (0.1-12.0); Hematocrit 35.5 % (37.0-47.0); Hemoglobin 11.8 g/dL (12.2-16.2); Lymphocytes # 1.7 K/mm3 (0.7-4.5); Lymphocytes % 25.9 % (10-50); Mean Corpuscular HGB Conc 33.3 g/dL (31.8-35.4); Mean Corpuscular Hemoglobin 28.7 pg (27.0-31.2); Mean Corpuscular Volume 86.3 fl (81-99); Mean Platelet Volume 7.9 fl (7.4-10.4); Monocytes # 0.4 K/mm3 (0.1-1.0); Monocytes % 6.9 % (1.7-9.3); Neutrophils # 4.2 K/mm3 (1.8-7.8); Neutrophils % 64.9 % (37.0-80.0); Platelet Count 309 K/mm3 (142-424); Red Blood Count 4.11 M/mm3 (4.20-5.40); Red Cell Distribution Width 14.8 % (11.5-17.5); White Blood Count 6.4 K/mm3 (4.8-10.8)
[2024-03-17 14:11] LABS: Thyroid Stimulating Hormone 1.56 uIU/mL (0.465-4.68)
[2024-03-17 14:36] LABS: Vitamin B12 > 1000 pg/mL (239-931)
[2024-03-17 15:18] LABS: Ferritin 17.2 ng/ml (11.1-264)
== END 2024-03-17 23:59 | disposition home or self-care (01) ==
LOC: LAB.DROPOF 12:17
PROVIDERS: PCP Nurse Practitioner Family; Visit Provider Nurse Practitioner Family
DX: D64.9 Anemia, unspecified (principal); R53.83 Other fatigue; D50.8 Other iron deficiency anemias; E03.9 Hypothyroidism, unspecified
CPT/HCPCS: 82607; 82728; 84443; 85025

== ENCOUNTER 2024-03-30 14:51 | Outpatient (CLI) | payer MEDICARE, SELFPAY | END 2024-03-30 23:59 | disposition home or self-care (01) | LOC: LAB.DROPOF 14:51 | PROVIDERS: PCP Nurse Practitioner Family; Visit Provider Nurse Practitioner Family | DX: R30.0 Dysuria (principal) | CPT/HCPCS: 87086 ==

== ENCOUNTER 2024-04-07 13:38 | Outpatient (CLI) | payer MEDICARE, SELFPAY ==
[2024-04-07 13:20] LABS: Coronavirus 19, PCR Not Detected (NotDetected); Influenza A, PCR Not Detected (NotDetected); Influenza B, PCR Not Detected (NotDetected)
== END 2024-04-07 23:59 | disposition home or self-care (01) ==
LOC: LAB.DROPOF 13:38
PROVIDERS: PCP Nurse Practitioner Family; Visit Provider Nurse Practitioner Family
DX: R06.02 Shortness of breath (principal)
CPT/HCPCS: 87636

== ENCOUNTER 2024-05-18 15:16 | Outpatient (CLI) | payer MEDICARE, SELFPAY | END 2024-05-18 23:59 | disposition home or self-care (01) | LOC: LAB.DROPOF 05-19 10:05 | PROVIDERS: PCP Nurse Practitioner Family; Visit Provider Nurse Practitioner Family | DX: R30.0 Dysuria (principal); N30.01 Acute cystitis with hematuria | CPT/HCPCS: 87086 ==

== ENCOUNTER 2024-06-09 09:42 | Outpatient (CLI) | payer MEDICARE, SELFPAY ==
[2024-06-09 09:58] LABS: Microscopic, Urine URINE MICROSCOPIC (MICROSCOPIC)
[2024-06-09 10:24] LABS: Appearance,Urine CLEAR (Clear); Bilirubin,Urine Negative (Negative); Blood, Urine Negative (Negative); Color,Urine YELLOW (Yellow); Glucose,Urine (UA) Negative (Negative); Ketones,Urine Negative (Negative); Leukocyte Esterase,Urine Negative (Negative); Nitrate,Urine Negative (Negative); PH,Urine 6.5 (5.0-8.5); Protein,Urine Negative (Negative); Specific Gravity, Urine 1.025 (1.005-1.030); Urobilinogen,Urine 0.2 EU/dl (0.2)
[2024-06-09 10:27] LABS: Basophils # 0.1 K/mm3 (0-0.2); Eosinophils # 0.2 K/mm3 (0.0-0.4); Eosinophils % 2.6 % (0.1-12.0); Hematocrit 36.3 % (37.0-47.0); Hemoglobin 11.8 g/dL (12.2-16.2); Lymphocytes # 1.5 K/mm3 (0.7-4.5); Mean Corpuscular HGB Conc 32.6 g/dL (31.8-35.4); Mean Corpuscular Hemoglobin 28.1 pg (27.0-31.2); Mean Corpuscular Volume 86.2 fl (81-99); Mean Platelet Volume 7.1 fl (7.4-10.4); Monocytes # 0.3 K/mm3 (0.1-1.0); Monocytes % 5.4 % (1.7-9.3); Neutrophils # 3.6 K/mm3 (1.8-7.8); Platelet Count 267 K/mm3 (142-424); Red Blood Count 4.21 M/mm3 (4.20-5.40); Red Cell Distribution Width 14.9 % (11.5-17.5); White Blood Count 5.5 K/mm3 (4.8-10.8)
[2024-06-09 10:39] LABS: Albumin Level 4.4 g/dl (3.5-5.0); Chloride 103 mmol/L (98-107)
[2024-06-09 10:40] LABS: Potassium 4.7 mmoL/L (3.5-5.1); Sodium 138 mmol/L (136-145)
[2024-06-09 10:42] LABS: Alanine Aminotransferase 26 U/L (12-78); Albumin/Globulin Ratio 1.6 (1.1-1.8); Alkaline Phosphatase 62 U/L (38-126); Anion Gap 11.7 mEq/L (5-15); Aspartate Amino Transferase 26 U/L (14-36); Bilirubin,Total 0.6 mg/dl (0.2-1.3); Blood Urea Nitrogen 19 mg/dl (7-17); Carbon Dioxide 28 mmol/L (22.0-30.0); Estimated Glomerular Filt Rate 83 ml/min (>60); GFR (African American) 101 ML/MIN (>60); Globulin 2.7 g/dL (1.3-3.2); Total Protein,Serum 7.1 g/dl (6.3-8.2)
[2024-06-09 10:43] LABS: Calcium 9.6 mg/dl (8.4-10.2); Glucose 94 mg/dl (74-100); Magnesium 1.9 mg/dl (1.6-2.3)
[2024-06-09 10:48] LABS: C-Reactive Protein 1.1 mg/L (0-4)
[2024-06-09 11:14] LABS: Thyroid Stimulating Hormone 3.14 uIU/mL (0.465-4.68)
[2024-06-09 11:18] LABS: Ferritin 14.6 ng/ml (11.1-264)
[2024-06-09 11:48] LABS: Vitamin B12 939 pg/mL (239-931)
[2024-06-10 12:20] LABS: Triiodothyronine (T3) Free 2.7 pg/mL (2.0-4.4)
== END 2024-06-09 23:59 | disposition home or self-care (01) ==
LOC: LAB 09:46
PROVIDERS: PCP Nurse Practitioner Family; Visit Provider Nurse Practitioner Family
DX: R30.0 Dysuria (principal); R42 Dizziness and giddiness; E03.9 Hypothyroidism, unspecified; D64.9 Anemia, unspecified
CPT/HCPCS: 36415; 80053; 81001; 82607; 82728; 83735; 84425; 84443; 84481; 85025; 86140; 87086

== ENCOUNTER 2024-06-23 13:07 | Outpatient (CLI) | payer MEDICARE, SELFPAY ==
--- NOTE | 2024-06-23 13:17 | CA_ITS ---
FINAL REPORT TECHNIQUE: Real-time imaging was performed of the extracranial carotid arteries in transverse and longitudinal planes with color duplex evaluation of blood flow velocity. Spectral analysis was performed. The cervicovertebral arteries were also examined. Stenosis evaluation based on elevated velocity criteria. CLINICAL HISTORY: dizziness FINDINGS: FINDINGS: RIGHT CAROTID: CCA PSV: 96 cm/sec ICA PSV: 138 cm/sec ECA PSV: 148 cm/sec ICA/CCA systolic flow velocity ratio: 1.5 Mild atherosclerotic plaque is noted. Narrowing is classified in the less than 50% category. LEFT CAROTID: CCA PSV: 140 cm/sec ICA PSV: 114 cm/sec ECA PSV: 109 cm/sec ICA/CCA systolic flow velocity ratio: 1.3 Mild atherosclerotic plaque is noted. Narrowing is classified in the less than 50% category. VERTEBRALS: Vertebral arteries are patent with antegrade flow and expected spectral waveforms. IMPRESSION: Less than 50% bilateral carotid artery stenosis. Patent vertebral arteries. Reviewed, Interpreted and Dictated by Shravan Khanna MD Transcribed by Manisha Rich Authenticated and [facility]
--- NOTE | 2024-06-23 13:49 | CT_ITS ---
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 A noncontrast coronary calcium scan was performed. A CT attenuation threshold of 130 Hounsfield units (HU) was used for the detection of calcium in contiguous voxels of 1 sq mm in area to be counted as individual lesions. A tube voltage of 120 KVp was used. The patient received no medications prior to the coronary calcium CT. Image Reconstruction Transaxial images were reconstructed at 0.67 mm slide thickness. Data was reviewed interactively on an advanced workstation capable of 2 and 3-dimensional displays in all conventional reconstruction formats, including multiplanar reformations, maximum intensity projections, curved multiplanar reformations, and volume rendered reconstructions. When applicable, selected routine images describing the relevant coronary anatomy and pathology were saved and sent to PACS. Complications None Technical Quality Overall image quality was good. Total DLP (Dose-Length Product) is 161.9 mGy-cm. The reported value represents the total of one or more individual components during the CT acquisition of this date and at this time, and as such, the same value may appear in more than one CT report depending on the interpreting/reporting physicians. COMPARISON None FINDINGS CT Coronary Calcium Scoring LMA (Left Main Artery) = 0 LAD (Left Anterior Descending) = 0 LCX (Left Coronary Circumflex) = 0 RCA (Right Coronary Artery) = 0 Total Calcium Score = 0 using the AJ-130 method. There is identifiable mild calcification in the descending thoracic aorta. IMPRESSION -Coronary artery calcification is absent. -Total Calcium Score (Agatston Score) = 0 using the AJ-130 method. - Mild calcification in the descending thoracic aorta. The interpretation of the calcium heart score is based on the following continuum*: 0 = no calcified plaque detected (risk of coronary artery disease is very low ??? less than 5%) 1-10 = calcium detected in extremely minimal levels (risk of coronary diseases is still low ??? less than 10%) 11-100 = mild levels of plaque detected with certainty (mild or minimal narrowing of heart arteries is likely) 101-400 = definite,at least moderate levels of plaque detected (relatively high risk of a heart attack within 3-5 years) >401-999 = extensive levels of plaque detected (high risk of heart attack, high levels of vascular disease are present, high likelihood of at least one significant coronary narrowing) *The calcium heart score quantifies the burden of coronary calcification/plaque in the coronary arteries. The calcium heart score does not evaluate the presence or the burden of non-calcified (i.e. soft) plaque. The coronary and cardiac findings of this Coronary Calcium CT were reviewed, reported, and signed by Jimi Guerin MD (Director [employer] Learning). Conclusion Electronically signed by : Dayanara Guerin MD 06/24/2024 13:06:33
== END 2024-06-23 23:59 | disposition home or self-care (01) ==
PROVIDERS: PCP Nurse Practitioner Family; Visit Provider Nurse Practitioner Family
DX: R42 Dizziness and giddiness (principal); I48.0 Paroxysmal atrial fibrillation; I51.89 Other ill-defined heart diseases; R94.39 Abnormal result of other cardiovascular function study; Z13.6 Encounter for screening for cardiovascular disorders
CPT/HCPCS: 75571; 93880

== ENCOUNTER 2024-07-31 12:07 | Emergency (ER) | payer MEDICARE, SELFPAY ==
--- NOTE | 2024-07-31 14:22 | EXP.UTC ---
Discharge Plan Disposition Patient Disposition: Home, Self-Care Condition: Good Prescriptions Prescriptions: New phenazopyridine [Pyridium] 200 mg tablet 200 mg PO Q8H 2 Days Qty: 6 0RF ciprofloxacin HCl [Cipro] 500 mg tablet 500 mg PO BID 7 Days Qty: 14 0RF ondansetron 4 mg Tablet,Disintegrating 4 mg PO Q8H PRN (Reason: Nausea) Qty: 8 0RF No Action aspirin [Adult Low Dose Aspirin] 81 mg tablet,delayed release (DR/EC) 81 mg PO DAILY atorvastatin 40 mg tablet 40 mg PO DAILY 30 Days Qty: 30 5RF citalopram [Celexa] 20 mg tablet 20 mg PO DAILY 30 Days Qty: 30 5RF Pro Fe 180 mg iron capsule 180 mg PO BID Qty: 60 2RF omeprazole 40 mg capsule,delayed release(DR/EC) See Rx Instructions .ROUTE .COMPLEX Qty: 90 0RF Dose Instruction: TAKE 1 CAPSULE BY MOUTH ONCE DAILY FOR ACID REFLUX Rx Instructions: TAKE 1 CAPSULE BY MOUTH ONCE DAILY FOR ACID REFLUX levothyroxine 75 mcg capsule 75 mcg PO DAILY 30 Days Qty: 30 5RF Referrals Follow up/Referrals: Beverly Gerardo APRN [Primary Care Provider] - See instructions Activity Restrictions/Add. Instructions Additional Instructions/Restrictions: Drink plenty of fluids. Take tylenol or ibuprofen for pain or fever. Take the medications as directed. Follow up with your regular doctor. GO TO THE ER FOR ANY WORSENING SYMPTOMS The pyridium will make your urine turn orange, this is an expected side effect. It will stain your clothes if it comes into contact with them. We will culture the urine. That will tell what bacteria is causing your infection and which antibiotics will treat it best.This test takes 3 days to complete. Clinical Impressions Clinical Impression: UTI (urinary tract infection) Instructions Patient Instructions: Urinary Tract Infection, Urine Culture, DI for Urinary Tract Infection (UTI), Phenazopyridine Print Language Print Language: Indonesian Discharge ED Provider: Ray Murray [facility] [place] General Stated complaint: pain and frequent urination, blood in urine Time Seen by Provider: 07/31/24 14:22 Related Data Home Medications ?Medication ?Instructions ?Recorded ?Confirmed aspirin 81 mg tablet,delayed 81 mg PO DAILY [facility] 02/02/19 07/31/24 release (Adult Low Dose Aspirin) Previous Rx's ?Medication ?Instructions ?Recorded atorvastatin 40 mg tablet 40 mg PO DAILY Cholesterol 30 days 10/16/23 #30 tabs citalopram 20 mg tablet (Celexa) 20 mg PO DAILY Anxiety 30 days #30 10/16/23 tabs levothyroxine 75 mcg capsule 75 mcg PO DAILY thyroid 30 days 06/11/24 #30 caps omeprazole 40 mg capsule,delayed See Rx Instructions .Route 06/11/24 release .COMPLEX #90 caps polysaccharide iron complex 180 mg 180 mg PO BID #60 caps 06/11/24 iron capsule (Pro Fe) ciprofloxacin HCl 500 mg tablet 500 mg PO BID 7 days #14 tabs 07/31/24 (Cipro) ondansetron 4 mg disintegrating 4 mg PO Q8H PRN Nausea #8 tabs 07/31/24 tablet phenazopyridine 200 mg tablet 200 mg PO Q8H 2 days #6 tabs 07/31/24 (Pyridium) Allergies Allergy/AdvReac Type Severity Reaction Status Date / Time nitrofurantoin (From Allergy Verified 06/09/24 08:36 Macrobid) Sulfa (Sulfonamide Allergy Verified 06/09/24 08:36 Antibiotics) [facility] Disclaimer: The information contained in this section may have been updated after the patient was seen, as this information can be updated by other users. Medical History (Updated 07/31/24 @ 14:45 by Rya Murray APRN) Dizziness Dysuria Herpes zoster Acute effusion of both middle ears Acute bronchitis Flu-like symptoms Acute sinusitis LOM (left otitis media) UTI (urinary tract infection) Viral upper respiratory infection Acute cystitis without hematuria Gastroenteritis Diarrhea Abdominal pain History of skin cancer GERD (gastroesophageal reflux disease) Hypothyroid Depression High cholesterol Ankle pain Laceration Laceration of finger Surgical History H/O colonoscopy H/O total hysterectomy Social History Smoking Status: Never smoker alcohol intake: never substance use type: denies use current occupational status: retired ROS Obtained: Yes All systems reviewed & no additional complaints except as documented Constitutional Constitutional: Reports system reviewed and no additional complaints, except as documented, Denies chills and Denies fever(s) Eyes Eyes: Denies eye discharge ENT Ears, Nose, Mouth, and Throat: Denies dysphagia, Denies sore throat and Denies throat swelling Cardiovascular Cardiovascular: Denies chest pain and Denies dyspnea Respiratory Respiratory: Denies chest congestion, Denies cough and Denies dyspnea Gastrointestinal Gastrointestingal: Denies abdominal pain, constipation, diarrhea, dysphagia, nausea or vomiting Genitourinary Female Genitourinary: Reports as per HPI, Reports dysuria, Reports urinary frequency, Denies urinary incontinence, Reports urinary hesitancy and Reports urinary urgency Musculoskeletal Musculoskeletal: Denies arthralgias and Reports back pain Integumentary/Breasts Skin/Breast: Denies rash Neurologic Neurologic: Denies paresthesias Allergic/Immunologic Allergic/Immunologic: Denies throat swelling Physical Exam General General appearance: alert and in no apparent distress Head Head exam: atraumatic and normocephalic Eye Eye exam: Present normal appearance, PERRL and EOMI ENT ENT exam: Present normal exam, mucous membranes moist, TM's normal bilaterally and normal external ear exam Neck Neck exam: Present normal inspection, full ROM and trachea midline; Absent tenderness, meningismus or lymphadenopathy Chest Chest inspection: Present normal inspection and symmetric chest wall rise; Absent tenderness Respiratory Respiratory exam: Present normal lung sounds bilaterally; Absent respiratory distress, wheezes or stridor Cardiovascular Cardiovascular exam: Present regular rate, normal rhythm and normal heart sounds Abdominal Exam Abdominal exam: Present soft and normal bowel sounds; Absent distention, tenderness, guarding, rebound, rigidity, incision, psoas sign, obturator sign, heel tap sign, Ibarra's sign, Rovsing's sign or tenderness at McBurney's Point Extremities Exam Extremities exam: Present normal inspection, full ROM and normal capillary refill; Absent tenderness, edema, joint swelling, calf tenderness or cyanosis Back Exam Back exam: Present normal inspection and full ROM; Absent tenderness, CVA tenderness (R) or CVA tenderness (L) Neurological Exam Neurological exam: Present alert, oriented X3 and normal gait Psychiatric Psychiatric exam: Present normal affect and normal mood Skin Skin exam: Present warm, dry, intact and normal color Lymphatic Lymphatic Findings: no adenopathy Medical Decision Making Medical Records Medical records reviewed: No I reviewed the patient's medical records. Screening: Per USPSTF and CDC recommendations, given the prevalence of disease in our region, it is our hospital?s policy to screen for HIV and viral Hepatitis for all patients aged 18 and over and those with ongoing risk factors. Kirby Inquiry Pt receiving controlled substance: No
[2024-07-31 14:27] LABS: Apearance,Urine Clear (Clear); Bilirubin,Urine Negative (Negative); Blood, Urine 3+ (Negative); Color,Urine Yellow (Yellow); Glucose,Urine (UA) Negative (Negative); Ketones,Urine Negative (Negative); Protein,Urine 1+ (Negative); Specific Gravity, Urine 1.025 (1.005-1.030); Urobilinogen,Urine 0.2 EU/dl (0.2)
[2024-07-31 14:28] LABS: UTC Leukocyte Esterase,Urine 2+ (Negative); UTC Nitrate,Urine Negative (Negative)
[2024-07-31 14:29] VITALS: BP 186/72; PULSE 56; RESP 20; TEMP 36.7; O2SAT 100; BMI 25.3
[2024-07-31 14:51] VITALS: BP 186/72; PULSE 56; RESP 20; TEMP 36.7
== END 2024-07-31 15:05 | disposition home or self-care (01) ==
PROVIDERS: Emergency Provider Nurse Practitioner Family; PCP Nurse Practitioner Family
DX: N39.0 Urinary tract infection, site not specified (principal); R30.0 Dysuria; R35.0 Frequency of micturition; M54.9 Dorsalgia, unspecified
CPT/HCPCS: 81003; 87086; 99212; G0381

== ENCOUNTER 2024-09-25 17:05 | Outpatient (CLI) | payer MEDICARE, SELFPAY ==
[2024-09-25 16:33] LABS: Human Rhinovirus Not Detected (NotDetected); Influenza A, PCR Not Detected (NotDetected); Influenza B, PCR Not Detected (NotDetected); Respiratory Syncytial Virus Not Detected (NotDetected)
[2024-09-25 18:47] LABS: Coronavirus 19, PCR Detected (NotDetected)
== END 2024-09-25 23:59 | disposition home or self-care (01) ==
LOC: LAB.DROPOF 17:06
PROVIDERS: PCP Nurse Practitioner Family; Visit Provider Nurse Practitioner Family
DX: R50.9 Fever, unspecified (principal); J02.9 Acute pharyngitis, unspecified
CPT/HCPCS: 87631

== ENCOUNTER 2025-02-05 16:47 | Outpatient (CLI) | payer MEDICARE, SELFPAY ==
--- OUTSIDE RECORDS SUMMARY | 2025-02-05 16:49 | XMS_ITS | Encounter Summary ---
Author Organization [place] [address] Care Team Providers Care Psych Assistant Name Role Phone Clayton George MD Unavailable Jack Cuello Primary Care Provider Jericho Vallejo APRN Primary Care Provider Encounter Details Date Type Department Care Team (Late st Contact Info) Description 01/06/2013 Orders Only SEP Gastro [facility] [address] [facility] Building [address] [place] [phone] [place] [address] [place] [address] Social History Tobacco Use Types Packs/Day Years Used Date Smoking Tobacco: Never Alcohol Use Standard Drinks/Week Comments No 0 (1 standard drink = 0.6 oz pur e alcohol) Comments Unknown Sex and Gender Information Value Date Recorded Sex Assigned at Not on file Legal Sex Female 4:46 AM EDT Gender Identity Not on file Sexual Orientation Not on file documented as of this encounter Plan of Treatment Not on file documented as of this encounter Procedures Procedure Name Priority Date/Time Associated Diagnosis Comments GMED COLONOSCOPY Routine 01/06/2013 1:30 PM EDT documented in this encounter Results * GMED COLONOSCOPY (01/06/2013 1:30 PM EDT) 01/06/2013 1:30 PM EDT Impressions [facility] - 01/06/2013 2:43 PM EDT Internal hemorrhoids. Normal mucosa in the terminal ileum. Normal mucosa in the whole colon. (Biopsy). Plan: Await pathology results Screening colonoscopy in 7-10 years. May resume occult blood testing in 5 years, but it does not need to be done for the next 5 years. You may need to have more frequent colonoscopies if another family member develops polyps or cancer. High Fiber Diet Follow-up with career services assistant as needed or with continued symptoms in 2-3 weeks. This section is an excerpt of the full report, which can be found by clicking the hyperlink. us Clayton George MD GI PROCEDURE ORDERABLES Allison nancy Result [facility] [address] [place] [address] documented in this encounter Visit Diagnoses Not on filedocumented in this encounter Care Teams Psych Assistant Relationship Specialty Start Date End Date Jcak Cuello PCP - General Family Medicine 01/06/13 01/30/16 Jericho Vallejo APRN [address] [place] [address] PCP - General Nurse Practitioner 01/31/16 Clayton George MD Internal Medicine-Gastroenterology 12/25/12 documented as of this encounter
--- OUTSIDE RECORDS SUMMARY | 2025-02-05 16:49 | XMS_ITS | Clinical Summary ---
Author Organization [facility] Address [address] [place] [address] Care Team Providers Care Consulting Systems Engineer Name Role Phone Unavailable Primary Care Provider Unavailabl e Allergies No known active allergies Medications atorvastatin (LIPITOR) 40 MG tablet 10/04/2015 Active citalopram (CELEXA) 20 MG tablet 12/05/2015 Active levothyroxine (SYNTHROID) 75 MCG tablet 12/05/2015 Active aspirin 81 MG tablet Take 81 mg by mouth daily Active Active Problems No known active problems Family History Medical History Relation Name Comments Cancer Father Heart Disease Mother Relation Name Status Comments Father Mother Social History Tobacco Use Types Packs/Day Years Used Date Smoking Tobacco: Never Tobacco Cessation:Counseling Given: Yes Comments Unknown Sex and Gender Information Value Date Recorded Sex Assigned at Not on file Legal Sex Female 2:34 PM EDT Gender Identity Not on file Sexual Orientation Not on file Last Filed Vital Signs Vital Sign Reading Time Taken Comments Blood Pressure 152/74 08/14/2016 5:19 PM EST Pulse 52 08/14/2016 5:19 PM EST Temperature - - Respiratory Rate - - Oxygen Saturation - - Inhaled Oxygen Concentration - - Weight 60.3 kg (132 lb 15 oz) 08/14/2016 5:16 PM EST Height 160 cm (5' 2.99 ) 08/14/2016 5:16 PM EST Body Mass Index 23.55 08/14/2016 5:16 PM EST Plan of Treatment Not on file Insurance [employer]
--- OUTSIDE RECORDS SUMMARY | 2025-02-05 16:49 | XMS_ITS | Encounter Summary ---
Author Organization [facility] [place] [address] Care Team Providers Care Office Services Manager Name Role Phone Clayton George MD Unavailable Jack Cuello Primary Care Provider Jericho Vallejo APRN Primary Care Provider Encounter Details Date Type Department Care Team (Late st Contact Info) Description 01/06/2013 Orders Only SEP Gastro [facility] [address] [facility] Building [address] [place] [phone] [place] [address] [place] [address] Social History Tobacco Use Types [...] Name Priority Date/Time Associated Diagnosis Comments GMED EGD Routine 01/06/2013 1:30 PM EDT documented in this encounter Results * GMED EGD (01/06/2013 1:30 PM EDT) 01/06/2013 1:30 PM EDT Impressions [facility] - 01/06/2013 2:25 PM EDT Erosions in the stomach body compatible with erosive gastritis. (Biopsy). Plan: Await pathology results Colonoscopy today. This section is an excerpt of the full report, which can be found by clicking the hyperlink. us Clayton George MD GI PROCEDURE ORDERABLES Allison l Result [facility] [address] [place] [address] documented in this encounter Visit Diagnoses Not on filedocumented in this encounter Care Teams Office Services Manager Relationship Specialty Start Date End Date Jack Cuello PCP - General Family Medicine 01/06/13 01/30/16 Jericho Vallejo APRN [address] [place] [address] PCP - General Nurse Practitioner 01/31/16 Clayton George MD Internal Medicine-Gastroenterology 12/25/12 documented as of this encounter
--- OUTSIDE RECORDS SUMMARY | 2025-02-05 16:49 | XMS_ITS | Clinical Summary ---
Author Organization [facility] [place] Address [address] [facility] [address] [place] [address] Phone Care Team Providers Care Manager Of Clinical Name Role Phone Clayton George MD Unavailable [phone] Jericho Vallejo APRN Primary Care Provider [phone] Allergies No known active allergies Medications aspirin 81 mg tablet Take by mouth daily. Active pravastatin (PRAVACHOL) 10 mg tablet Take 10 mg by mouth daily. Active citalopram (CELEXA) 20 mg Take 20 mg by mouth daily. Active levothyroxine (SYNTHROID) 50 mcg tablet Take by mouth daily. Active SUMAtriptan (IMITREX) 25 mg tablet Take 25 mg by mouth as needed. Active CALCIUM CARBONATE/VITAMIN D3 (VITAMIN D-3 ORAL) Take by mouth. Active hyoscyamine (ANASPAZ;LEVSIN) 0.125 mg Oral TabletIndications: Diarrhea Take 1 Tab by mouth 3 times daily with meals as needed for Cramping. 90 Tab 11 4 Active atorvastatin (LIPITOR) 40 mg Oral Tablet Take 40 mg by mouth daily. Active calcium polycarbophil (FIBERCON) 625 mg Oral Tablet Take 625 mg by mouth daily. Active Active Problems No known active problems Surgical History Surgery Date Site/Laterality Comments OVARIAN CYST SURGERY TUBAL LIGATION HYSTERECTOMY BLADDER SUSPENSION COLONOSCOPY SHOULDER ARTHROSCOPY 02/20/2016 Left LEFT SHOULDER ARTHROSCOPIC SUBACROMIAL DECOMPRESSION EXTENSIVE DEBRIDEMENT LYSIS OF ADHESIONS EVALUATION OF THE ROTATOR CUFF AND OPEN BICEPS TENODESIS ; Surgeon: Josue Castaneda MD; Location: [facility]; Service: Orthopedics Medical devices from this surgery are in the Medical Devices section. Medical History Medical History Date Comments C. difficile diarrhea UTI (lower urinary tract infection) Bronchitis Hypothyroid Heartburn Irritable bowel syndrome Family History Medical History Relation Name Comments Colon Cancer Mother negative Relation Name Status Comments Mother Social History Tobacco Use Types Packs/Day Years Used Date Smoking Tobacco: Never Smokeless Tobacco: Never Alcohol Use Standard Drinks/Week Comments No 0 (1 standard drink = 0.6 oz pur e alcohol) Comments No Sex and Gender Information Value Date Recorded Sex Assigned at Not on file Legal Sex Female 4:46 AM EDT Gender Identity Not on file Sexual Orientation Not on file Obstetrics History Last Filed Vital Signs Vital Sign Reading Time Taken Comments Blood Pressure 158/80 02/20/2016 5:47 PM EDT Pulse 70 02/20/2016 5:47 PM EDT Temperature 36.3 C (97.4 F) 02/20/2016 5:22 PM EDT Respiratory Rate 16 02/20/2016 5:47 PM EDT Oxygen Saturation 95% 02/20/2016 5:47 PM EDT Inhaled Oxygen Concentration - - Weight 60.6 kg (133 lb 8 oz) 02/20/2016 10:59 AM EDT Height 160 cm (5' 3 ) 02/20/2016 10:59 AM EDT Body Mass Index 23.65 02/20/2016 10:59 AM EDT Plan of Treatment Health Maintenance Due Date Last Done Comments Annual Wellness Exam 11/26/1958 Hepatitis C Screening 1974 DTaP/TDaP/Td (1 - Tdap) 11/26/1975 Breast Cancer Screening 1996 Cologuard 2001 FIT 2001 Sigmoidoscopy 2001 Virtual Colonography 2001 Pneumococcal Vaccine 50+ (1 of 1 - PCV) 2006 Zoster (1 of 2) 2006 Bone Density Screening 2021 Colon Cancer Screening 01/06/2023 Colonoscopy 01/06/2023 01/06/2013 COVID-19 Vaccine ( - 2023-2 5 season) 2024 Influenza Vaccine (Season Ended) 2025 Hepatitis B Vaccine Aged Out No longe r eligible based on patient's age to complete this topic Meningococcal B Vaccine Aged Out No l onger eligible based on patient's age to complete this topic Medical Devices Implanted Type Area Whipped Topping Supervisor Device Identifier Shelf Expiration Date Model / Serial / Lot Screw [employer]posite 7mm X 10mm - [id number] Implanted:Qty: 1 on 02/20/2016 by Josue Castaneda MD at [facility] Left: Shoulder ARTHREX 11/30/2016 [id number] / / [id number] Procedures Procedure Name Priority Date/Time Associated Diagnosis Comments GMED COLONOSCOPY Routine 01/06/2013 1:30 PM EDT from Last 3 Months or Most Recently Relevant to Health Maintenance Results * GMED COLONOSCOPY (01/06/2013 1:30 PM EDT) 01/06/2013 1:30 PM EDT Impressions [facility] - 01/06/2013 2:43 PM EDT [...] or cancer. High Fiber Diet Follow-up with blueprint machine operator as needed or with continued symptoms in 2-3 weeks. This section is an excerpt of the full report, which can be found by clicking the hyperlink. us Clayton George MD GI PROCEDURE ORDERABLES Allison cruz Result [facility] [address] [place] [address] from Last 3 Months or Most Recently Relevant to Health Maintenance Insurance [employer] Care Teams Manager Of Clinical Relationship Specialty Start Date End Date Jericho Vallejo APRN [address] [place] [address] PCP - General Nurse Practitioner 01/31/16 Clayton George MD Internal Medicine-Gastroenterology 12/25/12
--- OUTSIDE RECORDS SUMMARY | 2025-02-05 16:49 | XMS_ITS | Clinical Summary ---
Author Organization [facility] Care Team Providers Care Lining Setter Name Role Phone Provider, Imaging Unavailable Unavailable Conditions or Problems Problem Name Problem Code Onset Date Status Entry Date Provider Comment Standard Description Annotate SHOULDER PAIN, LEFT 719.41 (ICD-9-CM) Active Megan Duckworth Pain in joint involving shoulder region Medications No information available. Medications Administered No information available. Allergies, Adverse Reactions, Alerts No information available. Results No information available. Plan of Care No information available. Procedures Code Procedure Name Date Entry Date 83270 MRI Upper Extremity with Joint Vital Signs No information available. Immunizations No information available. Advance Directives No information available.
[2025-02-05 17:27] LABS: Alanine Aminotransferase 28 U/L (12-78); Albumin Level 4.4 g/dl (3.5-5.0); Albumin/Globulin Ratio 1.6 (1.1-1.8); Alkaline Phosphatase 69 U/L (38-126); Anion Gap 10.3 mEq/L (5-15); Aspartate Amino Transferase 27 U/L (14-36); Bilirubin,Total 0.7 mg/dl (0.2-1.3); Blood Urea Nitrogen 12 mg/dl (7-17); Calcium 9.6 mg/dl (8.4-10.2); Carbon Dioxide 27 mmol/L (22.0-30.0); Chloride 106 mmol/L (98-107); Estimated Glomerular Filt Rate 71 ml/min (>60); GFR (African American) 86 ML/MIN (>60); Globulin 2.7 g/dL (1.3-3.2); Glucose 113 mg/dl (74-100); Potassium 4.3 mmoL/L (3.5-5.1); Sodium 139 mmol/L (136-145); Total Protein,Serum 7.1 g/dl (6.3-8.2)
[2025-02-05 17:42] LABS: Free T4 (Free Thyroxine) 1.06 ng/dl (0.78-2.19)
[2025-02-05 17:43] LABS: T4 (Thyroxine) 8.5 ug/dl (5.53-11.0)
[2025-02-05 17:57] LABS: Thyroid Stimulating Hormone 2.12 uIU/mL (0.465-4.68)
[2025-02-06 08:16] LABS: Triiodothyronine (T3) Free 2.9 pg/mL (2.0-4.4)
== END 2025-02-05 23:59 | disposition home or self-care (01) ==
LOC: LAB.DROPOF 16:47
PROVIDERS: PCP Nurse Practitioner Family; Visit Provider Nurse Practitioner Family
DX: E03.9 Hypothyroidism, unspecified (principal); I10 Essential (primary) hypertension; E78.49 Other hyperlipidemia
CPT/HCPCS: 80053; 84436; 84439; 84443; 84481

== ENCOUNTER 2025-04-02 14:32 | Outpatient (CLI) | payer MEDICARE, SELFPAY ==
--- OUTSIDE RECORDS SUMMARY | 2025-04-02 14:34 | XMS_ITS | Encounter Summary ---
Author Organization [place] [address] Care Team Providers Care Carpenter Mate Name Role Phone Clayton George MD Unavailable [phone] Jack Cuello Primary Care Provider [phone] Jericho Vallejo APRN Primary Care Provider Encounter Details Date Type Department Care Team (Late st Contact Info) Description 01/06/2013 Orders Only SEP Gastro [facility] [address] [facility] Building [address] [place] [phone] [place] [address] [place] [address] Social History Tobacco Use Types [...] PM EDT) 01/06/2013 1:30 PM EDT Impressions [facility] - 01/06/2013 2:25 PM EDT Erosions in the stomach body compatible with erosive gastritis. (Biopsy). Plan: Await pathology results Colonoscopy today. This section is an excerpt of the full report, which can be found by clicking the hyperlink. us Clayton George MD GI PROCEDURE ORDERABLES Allison l Result [facility] [address] [place] [address] documented in this encounter Visit Diagnoses Not on filedocumented in this encounter Care Teams Carpenter Mate Relationship Specialty Start Date End Date Jack Cuello PCP - General Family Medicine 01/06/13 01/30/16 Jericho Vallejo APRN [address] [place] [address] PCP - General Nurse Practitioner 01/31/16 Clayton George MD Internal Medicine-Gastroenterology 12/25/12 documented as of this encounter
--- OUTSIDE RECORDS SUMMARY | 2025-04-02 14:34 | XMS_ITS | Clinical Summary ---
Author Organization [facility] Care Team Providers Care Rolfer Name Role Phone Provider, Imaging Unavailable Unavailable [...] Procedures Code Procedure Name Date Entry Date 31411 MRI Upper Extremity with Joint Vital Signs No information available. Immunizations No information available. Advance Directives No information available.
--- OUTSIDE RECORDS SUMMARY | 2025-04-02 14:34 | XMS_ITS | Clinical Summary ---
Author Organization [facility] Address [address] [facility], [address] [place] [address] Care Team Providers Care Dials Supervisor Name Role Phone Unavailable Primary Care Provider [...]
--- OUTSIDE RECORDS SUMMARY | 2025-04-02 14:34 | XMS_ITS | Encounter Summary ---
Author Organization [place] [address] Care Team Providers Care Manufacturing Machine Operator Name Role Phone Clayton George MD Unavailable [phone] Jack Cuello Primary Care Provider [phone] Jericho Vallejo APRN Primary Care Provider Encounter Details Date Type Department Care Team (Late st Contact Info) Description 01/06/2013 Orders Only SEP Gastro [facility] [address] [facility] Building [address] [place] [phone] [place] [address] [place] [address] Social History Tobacco Use Types [...] PM EDT) 01/06/2013 1:30 PM EDT Impressions [facility] - 01/06/2013 2:43 PM [...] or cancer. High Fiber Diet Follow-up with announcer as needed or with continued symptoms in 2-3 weeks. This section is an excerpt of the full report, which can be found by clicking the hyperlink. us Clayton George MD GI PROCEDURE ORDERABLES Allison nancy Result [facility] 1 [place] [address] documented in this encounter Visit Diagnoses Not on filedocumented in this encounter Care Teams Manufacturing Machine Operator Relationship Specialty Start Date End Date Jack Cuello PCP - General Family Medicine 01/06/13 01/30/16 Jericho Vallejo APRN [address] [place] [address] PCP - General Nurse Practitioner 01/31/16 Clayton George MD Internal Medicine-Gastroenterology 12/25/12 documented as of this encounter
--- OUTSIDE RECORDS SUMMARY | 2025-04-02 14:34 | XMS_ITS | Clinical Summary ---
Author Organization [facility] [place] Address [address] [facility] [address] [place] [address] Phone Care Team Providers Care Mail Censor Name Role Phone Clayton George MD Unavailable [phone] Jericho Vallejo APRN Primary Care Provider [phone] Allergies No known active allergies Medications aspirin [...] Screening 01/06/2023 Colonoscopy 01/06/2023 01/06/2013 COVID-19 Vaccine (1 - 2023-2 5 season) 2024 Influenza Vaccine (#1) 2025 Hepatitis B Vaccine Aged Out No longe r eligible based on patient's age to complete this topic Meningococcal B Vaccine Aged Out No l onger eligible based on patient's age to complete this topic Medical Devices Implanted Type Area Lead Ingot Molder Device Identifier Shelf Expiration Date Model / Serial / Lot Screw Tenodesis Biocomposite 7mm X 10mm - [id number] Implanted:Qty: 1 on 02/20/2016 by Josue Castaneda MD at [facility] Left: Shoulder [employer] 11/30/2016 [id number] / / [id number] Procedures Procedure Name Priority Date/Time Associated Diagnosis Comments GMED COLONOSCOPY Routine 01/06/2013 1:30 PM EDT from Last 3 Months or Most Recently Relevant to Health Maintenance Results * GMED COLONOSCOPY (01/06/2013 1:30 PM EDT) 01/06/2013 1:30 PM EDT Impressions [facility] - 01/06/2013 2:43 PM EDT [...] or cancer. High Fiber Diet Follow-up with rn clinical research as needed or with continued symptoms in 2-3 weeks. This section is an excerpt of the full report, which can be found by clicking the hyperlink. us Clayton George MD GI PROCEDURE ORDERABLES Allison cruz Result [facility] [place] [address] from Last 3 Months or Most Recently Relevant to Health Maintenance Insurance [employer] PPO Care Teams Mail Censor Relationship Specialty Start Date End Date Jericho Vallejo APRN [address] [place] [address] PCP - General Nurse Practitioner 01/31/16 Clayton George MD Internal Medicine-Gastroenterology 12/25/12
--- NOTE | 2025-04-02 14:35 | XR_ITS ---
FINAL REPORT CLINICAL HISTORY: left sided sciatica COMPARISON: None FINDINGS: LUMBAR SPINE: AP and lateral views of the lumbar spine were obtained. There is no prior exam for comparison. There is no acute fracture or malalignment. Vertebral body height is preserved. There is loss of disc space height at the L4-5 and L5-S1 levels. Facet sclerosis is present in the lower lumbar spine. No acute paraspinal abnormality. IMPRESSION: Degenerative change predominantly in the lower lumbar spine, without acute bony abnormality. Reviewed, Interpreted and Dictated by Shravan Khanna MD Transcribed by Lillian Cerna Authenticated and . [facility]
== END 2025-04-02 23:59 | disposition home or self-care (01) ==
LOC: RAD 14:32
PROVIDERS: PCP Nurse Practitioner Family; Visit Provider Nurse Practitioner Family
DX: M51.379 Other intervertebral disc degeneration, lumbosacral region without mention of lumbar back pain or lower extremity pain (principal); M47.897 Other spondylosis, lumbosacral region
CPT/HCPCS: 72100

== ENCOUNTER 2025-04-13 09:38 | Outpatient (CLI) | payer MEDICARE, SELFPAY ==
--- OUTSIDE RECORDS SUMMARY | 2025-04-13 09:41 | XMS_ITS | Clinical Summary ---
Author Organization [facility] Care Team Providers Care Drum Sander Offbearer Name Role Phone Provider, Imaging Unavailable Unavailable [...] Procedures Code Procedure Name Date Entry Date 50226 MRI Upper Extremity with Joint Vital Signs No information available. Immunizations No information available. Advance Directives No information available.
--- OUTSIDE RECORDS SUMMARY | 2025-04-13 09:41 | XMS_ITS | Encounter Summary ---
Author Organization [place] [address] Care Team Providers Care Automatic Chief Name Role Phone Clayton George MD Unavailable Jack Cuello Primary Care Provider Jericho Vallejo APRN Primary Care Provider Encounter Details Date Type Department Care Team (Late st Contact Info) Description 01/06/2013 Orders Only SEP Gastro [facility] [address] [facility] Building [address] [place] [phone] [place] [address] [place] [address] Social History Tobacco Use Types [...] PM EDT) 01/06/2013 1:30 PM EDT Impressions [facility] - 01/06/2013 2:25 PM EDT Erosions in the stomach body compatible with erosive gastritis. (Biopsy). Plan: Await pathology results Colonoscopy today. This section is an excerpt of the full report, which can be found by clicking the hyperlink. us Clayton George MD GI PROCEDURE ORDERABLES Allison l Result [facility] 1 [place] [address] documented in this encounter Visit Diagnoses Not on filedocumented in this encounter Care Teams Automatic Chief Relationship Specialty Start Date End Date Jack Cuello PCP - General Family Medicine 01/06/13 01/30/16 Jericho Vallejo APRN [address] [place] [address] PCP - General Nurse Practitioner 01/31/16 Clayton George MD Internal Medicine-Gastroenterology 12/25/12 documented as of this encounter
--- OUTSIDE RECORDS SUMMARY | 2025-04-13 09:41 | XMS_ITS | Clinical Summary ---
Author Organization [facility] [place] Address [address] [facility] [address] [place] [address] Phone Care Team Providers Care Airport Security Screener Name Role Phone Clayton George MD Unavailable [phone] Jericho Vallejo APRN Primary Care Provider [phone] Allergies No known active allergies Medications aspirin [...] this topic Medical Devices Implanted Type Area Education Research Analyst Device Identifier Shelf Expiration Date Model / Serial / Lot Screw Tenodesis Biocomposite 7mm X 10mm - [id number] Implanted:Qty: 1 on 02/20/2016 by Josue Castaneda MD at [facility] Left: Shoulder [employer]X 11/30/2016 [id number] / / [id number] Procedures Procedure Name Priority Date/Time Associated Diagnosis Comments GMED COLONOSCOPY Routine 01/06/2013 1:30 PM EDT from Last 3 Months or Most Recently Relevant to Health Maintenance Results * GMED COLONOSCOPY (01/06/2013 1:30 PM EDT) 01/06/2013 1:30 PM EDT Impressions [facility] - 01/06/2013 2:43 PM EDT [...] or cancer. High Fiber Diet Follow-up with explosive ordnance specialist as needed or with continued symptoms in 2-3 weeks. This section is an excerpt of the full report, which can be found by clicking the hyperlink. us Clayton George MD GI PROCEDURE ORDERABLES Allison cruz Result [facility] 1 [place] [address] from Last 3 Months or Most Recently Relevant to Health Maintenance Insurance [employer] PPO Care Teams Airport Security Screener Relationship Specialty Start Date End Date Jericho Vallejo APRN 0 [place] [address] PCP - General Nurse Practitioner 01/31/16 Clayton George MD Internal Medicine-Gastroenterology 12/25/12
--- OUTSIDE RECORDS SUMMARY | 2025-04-13 09:41 | XMS_ITS | Encounter Summary ---
Author Organization [place] [address] Care Team Providers Care Medical Scheduler Name Role Phone Clayton George MD Unavailable Jack Cuello Primary Care Provider Jericho Vallejo APRN Primary Care Provider [phone] Encounter Details Date Type Department Care Team (Late st Contact Info) Description 01/06/2013 Orders Only SEP Gastro [facility] [address] [facility] Building [address] [place] [phone] [place] [address] [place] [address] Social History Tobacco Use Types [...] PM EDT) 01/06/2013 1:30 PM EDT Impressions [facility] - 01/06/2013 2:43 PM EDT Internal [...] or cancer. High Fiber Diet Follow-up with auto wash buffer as needed or with continued symptoms in 2-3 weeks. This section is an excerpt of the full report, which can be found by clicking the hyperlink. us Calyton George MD GI PROCEDURE ORDERABLES Allison nancy Result [facility] 1 [place] [address] documented in this encounter Visit Diagnoses Not on filedocumented in this encounter Care Teams Medical Scheduler Relationship Specialty Start Date End Date Jack Cuello PCP - General Family Medicine 01/06/13 01/30/16 Jericho Vallejo APRN 0 [place] [address] PCP - General Nurse Practitioner 01/31/16 Clayton George MD Internal Medicine-Gastroenterology 12/25/12 documented as of this encounter
--- OUTSIDE RECORDS SUMMARY | 2025-04-13 09:41 | XMS_ITS | Clinical Summary ---
Author Organization [facility] Address [address] [facility], [address] [place] [address] Care Team Providers Care Net Programmer Name Role Phone Unavailable Primary Care Provider [...]
--- NOTE | 2025-04-13 09:45 | MR_ITS ---
FINAL REPORT TECHNIQUE: Multiplanar MR without contrast CLINICAL HISTORY: left leg numbness, LBP no injury /trauma COMPARISON: none FINDINGS: Sagittal images show normal vertebral height. Alignment is normal. Marrow signal pattern is unremarkable. T12-L1: Unremarkable L1-2: Unremarkable L2-3: Moderate annular disc bulge. Mild central canal stenosis. L3-4: Minimal annular disc bulge. Mild facet overgrowth. Borderline central canal stenosis. Moderate right and mild left neural foraminal narrowing. L4-5: Minimal annular disc bulge. Moderate facet arthropathy. Ligamentum flavum hypertrophy. Mild central canal stenosis. Mild neural foraminal narrowing. L5-S1: Moderate annular disc bulge. Small central disc protrusion. Mild facet arthropathy. Mild central canal stenosis. Moderate left and mild right neural foraminal narrowing. IMPRESSION: Moderate diffuse degenerative changes as above. Reviewed, Interpreted and Dictated by Sienna Mcclendon MD Transcribed by Loida Price Authenticated and [facility]
== END 2025-04-13 23:59 | disposition home or self-care (01) ==
LOC: RAD 09:39
PROVIDERS: PCP Nurse Practitioner Family; Visit Provider Nurse Practitioner Family
DX: M47.26 Other spondylosis with radiculopathy, lumbar region (principal)
CPT/HCPCS: 72148

== ENCOUNTER 2025-05-25 13:56 | Outpatient (CLI) | payer MEDICARE, SELFPAY ==
--- NOTE | 2025-05-25 14:02 | XR_ITS ---
FINAL REPORT CLINICAL HISTORY: PLEURODYNIA COMPARISON: 01/29/2023 FINDINGS: PA and lateral views of the chest were obtained. The cardiac and mediastinal silhouettes are within normal limits. The lungs are clear. There is no pleural effusion or pneumothorax. No acute osseous abnormality is identified. IMPRESSION: No radiographic evidence of acute cardiac or pulmonary disease. Reviewed, Interpreted and Dictated by Bina Alves MD Transcribed by Vanessa Pimentel Authenticated and [facility]
--- OUTSIDE RECORDS SUMMARY | 2025-05-25 14:02 | XMS_ITS | Clinical Summary ---
Author Organization [facility] Care Team Providers Care Felt Puller Name Role Phone Provider, Imaging Unavailable Unavailable [...] Procedures Code Procedure Name Date Entry Date 72743 MRI Upper Extremity with Joint Vital Signs No information available. Immunizations No information available. Advance Directives No information available.
--- OUTSIDE RECORDS SUMMARY | 2025-05-25 14:02 | XMS_ITS | Encounter Summary ---
Author Organization [place] [address] Care Team Providers Care Aerodynamicist Name Role Phone Clayton George MD Unavailable Jack Cuello Primary Care Provider [phone] Jericho Vallejo APRN Primary Care Provider Encounter Details Date Type Department Care Team (Late st Contact Info) Description 01/06/2013 Orders Only SEP Gastro [facility] [address] [facility] [address] [place] [address] [place] [address] [place] [address] Social History Tobacco Use Types [...] PM EDT) 01/06/2013 1:30 PM EDT Impressions [facility] - 01/06/2013 2:43 [...] or cancer. High Fiber Diet Follow-up with user interface designer as needed or with continued symptoms in 2-3 weeks. This section is an excerpt of the full report, which can be found by clicking the hyperlink. us Clayton George MD GI PROCEDURE ORDERABLES Allison l Result Performing Organization Address City/State/[facility] Co de Phone Number [facility] 1 [place] [address] documented in this encounter Visit Diagnoses Not on filedocumented in this encounter Care Teams Aerodynamicist Relationship Specialty Start Date End Date Jack Cuello PCP - General Family Medicine 01/06/13 01/30/16 Jericho Vallejo APRN 0 [place] [address] PCP - General Nurse Practitioner 01/31/16 Clayton George MD Internal Medicine-Gastroenterology 12/25/12 documented as of this encounter
--- OUTSIDE RECORDS SUMMARY | 2025-05-25 14:02 | XMS_ITS | Clinical Summary ---
Author Organization [facility] [place] Address [address] [facility] [address] [place] [address] Phone Care Team Providers Care Kiln Pusher Name Role Phone Clayton George MD Unavailable [phone] Jericho Vallejo APRN Primary Care Provider [phone] Allergies No known active allergies Medications aspirin [...] COVID-19 Vaccine (1 - 2023-2 5 season) 2025 Influenza Vaccine (#1) 2025 Hepatitis B Vaccine Aged Out No longe r eligible based on patient's age to complete this topic Meningococcal B Vaccine Aged Out No l onger eligible based on patient's age to complete this topic Medical Devices Implanted Type Area Lead Based Paint Technician Device Identifier Shelf Expiration Date Model / Serial / Lot Screw Tenodesis Biocomposite 7mm X 10mm - [id number] Implanted:Qty: 1 on 02/20/2016 by Josue Castaneda MD at [facility] Left: Shoulder [employer] 11/30/2016 AR-[id number] / / [id number] Procedures Procedure Name Priority Date/Time Associated Diagnosis Comments GMED COLONOSCOPY Routine 01/06/2013 1:30 PM EDT from Last 3 Months or Most Recently Relevant to Health Maintenance Results * GMED COLONOSCOPY (01/06/2013 1:30 PM EDT) 01/06/2013 1:3 0 PM EDT Impressions [facility] - 01/06/2013 2:43 PM [...] or cancer. High Fiber Diet Follow-up with painter assistant as needed or with continued symptoms in 2-3 weeks. This section is an excerpt of the full report, which can be found by clicking the hyperlink. us Clayton George MD GI PROCEDURE ORDERABLES Allison cruz Result [facility] 1 [place] [address] from Last 3 Months or Most Recently Relevant to Health Maintenance Insurance [facility] PPO Care Teams Kiln Pusher Relationship Specialty Start Date End Date Jericho Vallejo APRN 0 [place] [address] PCP - General Nurse Practitioner 01/31/16 Clayton George MD Internal Medicine-Gastroenterology 12/25/12
--- OUTSIDE RECORDS SUMMARY | 2025-05-25 14:02 | XMS_ITS | Encounter Summary ---
Author Organization [place] [address] Care Team Providers Care Machine Iii Coremaker Name Role Phone Clayton George MD Unavailable Jack Cuello Primary Care Provider Jericho Vallejo APRN Primary Care Provider Encounter Details Date Type Department Care Team (Late st Contact Info) Description 01/06/2013 Orders Only SEP Gastro [facility] [address] [facility] [address] [place] [address] [place] [address] [place] [address] Social History Tobacco Use Types [...] PM EDT) 01/06/2013 1:30 PM EDT Impressions [facility] - 01/06/2013 2:25 PM EDT Erosions in the stomach body compatible with erosive gastritis. (Biopsy). Plan: Await pathology results Colonoscopy today. This section is an excerpt of the full report, which can be found by clicking the hyperlink. us Clayton George MD GI PROCEDURE ORDERABLES Allison l Result [facility] 1 [place] [address] documented in this encounter Visit Diagnoses Not on filedocumented in this encounter Care Teams Machine Iii Coremaker Relationship Specialty Start Date End Date Jack Cuello PCP - General Family Medicine 01/06/13 01/30/16 Jericho Vallejo APRN [address] [place] [address] PCP - General Nurse Practitioner 01/31/16 Clayton George MD Internal Medicine-Gastroenterology 12/25/12 documented as of this encounter
--- OUTSIDE RECORDS SUMMARY | 2025-05-25 14:02 | XMS_ITS | Clinical Summary ---
Author Organization [facility] Address [address] [facility], [address] [place] [address] Care Team Providers Care Collective Bargaining Specialist Name Role Phone Unavailable Primary Care Provider [...]
--- NOTE | 2025-05-25 14:27 | XR_ITS ---
FINAL REPORT CLINICAL HISTORY: LEFT SIDED RIB PAIN FINDINGS: LEFT RIBS Three views were obtained. There is no fracture or dislocation. No acute rib abnormality is identified. IMPRESSION: No acute process. Reviewed, Interpreted and Dictated by Bina Alves MD Transcribed by Vanessa Pimentel Authenticated and [facility]
== END 2025-05-25 23:59 | disposition home or self-care (01) ==
LOC: RAD 13:57
PROVIDERS: PCP Nurse Practitioner Family; Visit Provider Nurse Practitioner Family
DX: R07.81 Pleurodynia (principal)
CPT/HCPCS: 71046; 71100

== ENCOUNTER 2025-07-01 09:00 | Outpatient (RCR) | payer MEDICARE, SELFPAY | END 2025-07-01 23:59 | disposition home or self-care (01) | LOC: PT 09:00 | PROVIDERS: Visit Provider Orthopaedic Surgery | DX: M54.50 Low back pain, unspecified (principal) | CPT/HCPCS: 97014; 97110; 97162; G0283 ==

== ENCOUNTER 2025-07-16 14:48 | Outpatient (RCR) | payer MEDICARE, SELFPAY | END 2025-07-16 23:59 | disposition home or self-care (01) | LOC: PT 14:48 | PROVIDERS: Visit Provider Orthopaedic Surgery | DX: M54.50 Low back pain, unspecified (principal) | CPT/HCPCS: 97014; 97110; G0283 ==